=== PATIENT | male | born 1950 | race Caucasian/White ===

== ENCOUNTER 2020-06-14 09:53 | Emergency (ER) | payer MEDICARE, OTHER, SELFPAY ==
[2020-06-14 09:55] VITALS: BP 162/92; PULSE 70; RESP 16; TEMP 36.7; O2SAT 97; BMI 27.0
--- NOTE | 2020-06-14 10:09 | EKG12_ITS ---
Test Reason : Blood Pressure : / mmHG Vent. Rate : 070 BPM Atrial Rate : 070 BPM P-R Int : 164 ms QRS Dur : 084 ms QT Int : 360 ms P-R-T Axes : 043 006 028 degrees QTc Int : 388 ms Normal sinus rhythm Poor R- wave Progression Confirmed by MEGAN WEBER, KENNETH ([id number]), television news video editor MI CALLES ([id number]) on 06/17/2020 12:29:18 PM Referred By: ROLANDO Confirmed By:KENNETH GUZMAN MD
--- NOTE | 2020-06-14 10:09 | RAD_ITS ---
STUDY: X-RAY CHEST REASON FOR EXAM: Male, 69 years old. Chest pain, possible strokes, drowsiness. TECHNIQUE: Single AP portable view of the chest. COMPARISON: 05/15/2011 FINDINGS: The lungs are clear and expanded. There is no demonstrated pleural abnormality. Normal size heart. Normal mediastinum and chante. Normal visualized pulmonary arteries. There is atherosclerotic tortuosity of the aortic arch and descending thoracic aorta. Normal visualized thoracic spine. Normal visualized ribs, clavicles, and shoulders. There is no demonstrated abnormality of the visualized soft tissue structures of the upper abdomen. RAD/Chest 1 View (Portable) IMPRESSION: No active pulmonary disease. Electronically Signed: Flavio Serna MD at 11:14 EDT Tel , Service support ,
--- NOTE | 2020-06-14 10:09 | CT_ITS ---
STUDY: CT BRAIN WITHOUT CONTRAST REASON FOR EXAM: Male, 69 years old. Episodes of headache. RADIATION DOSAGE (If Supplied By Facility): CTDIvol = ( 44.99 ) mGy, DLP = ( 812.98 ) mGycm TECHNIQUE: Transaxial CT imaging of the brain was performed without administration of intravenous contrast material. Individualized dose optimization techniques were used for this CT. COMPARISON: No relevant priors. FINDINGS: Normal soft tissue structures. Normal calvarium. Normal size ventricles and extra-axial spaces for the patient''s age. Normal white matter tracts of the cerebral hemispheres. Normal basal ganglia and thalami. Normal brainstem. Normal cerebellum. There is no intracranial hemorrhage. There are no findings of an acute ischemic infarction. There are mild calcifications of the cavernous internal carotid arteries. Normal visualized paranasal sinuses. CT/Brain/Head without Contrast IMPRESSION: No acute intracranial process. Electronically Signed: Flavio Senra MD at 11:08 EDT Tel , Service support ,
[2020-06-14 10:11] VITALS: BMI 27.0
[2020-06-14 10:14] VITALS: O2SAT 97
--- NOTE | 2020-06-14 10:27 | ED.DCSUM_ITS ---
History of Present Illness Chief Complaint: Neuro S/Sx Informant: Patient, Family Onset: Days Maximum Severity: Mild Narrative: The patient presents with his , they are reporting that on the patient had a spell in the morning where basically he seemed to have his eyes rolled back up into his head, and he began to get stiff in the right arm and might of had some truncal jerking. The was there and witnessed the above this lasted for a few minutes he woke was at his baseline he had no tongue biting or incontinence. The patient he Bhargavi that he recalls the trying to interact with him he does not recall the actual episode. Later that afternoon he had a similar episode lasted again for a few minutes. Tuesday he was fine doing all of his normal activities including a 3 mile walk raking leaves. This morning he had a similar episode where he seemed to not interact with the for a short period of time and she was concerned he again had the stiffness in his right upper extremity the patient does not have clear recollection of the above but does again recall the trying to interact with him. The patient has no history of IN PE DVT seizure stroke TIA. He is eating and drinking well his bowel and bladder habits are normal he has no coronavirus exposure he indicates he feels fine right now nothing is bothering him Past Medical History - Allergies and Home Meds Allergies/Adverse Reactions: Allergies No Known Allergies Allergy (Verified 06/14/20 09:54) Primary Care Physician: Edgard Avila MD [Primary Care Provider] - Past Medical History: - - Includes as above Smoking Status: Never smoker Review of Systems General: Denies: Chills, Fever, Sweats Eyes: Denies: Visual changes - bilaterally, Diplopia ENT: Denies: Rhinorrhea, Sore throat Cardiovascular: Denies: Chest pain, Palpitations Respiratory: Denies: Dyspnea, Cough, Dyspnea on exertion Gastrointestinal: Denies: Abdominal pain, Nausea, Vomiting, Diarrhea, Melena, Hematochezia Genitourinary: Denies: Dysuria, Hematuria, Frequency Musculoskeletal: Denies: Back pain, Extremity Pain Skin: Denies: Rash, Wounds Neurological: Reports: - - Nonspecific sense of spasm in the right upper extremity possibly some truncal jerking with some of these episodes. Denies: Headache, Weakness, Numbness Physical Exam Vital Signs/Narrative: Vital Signs Temp Pulse Resp BP Pulse Ox 06/14/20 10:14 97 06/14/20 09:55 98.1 F 70 16 162/92 H 97 General: Well nourished, Well developed, No Acute Distress Head: Normocephalic, Atraumatic Eyes: Perrl, EOMI ENT: Moist mucous membranes, No rhinorrhea Neck: Supple, Nontender Cardiovascular: Regular rate, Regular rhythm, No murmurs Respiratory: No distress, CTA bilaterally, Chest nontender Abdomen: Soft, Nontender, Nondistended, Normal bowel sounds Back: Nontender, Normal Inspection Extremities: Nontender, No edema Skin: Normal color, No rash Neurological: Alert, Oriented x3, Cranial nerves II-XII grossly intact, Normal Strength, Normal Sensation Psychological: Normal affect, Normal Mood Diagnostic/Tx/Re-eval - Medical Decision Making The patient's neurologic exam is unremarkable his NIH is 0 he is awake and alert cranial nerves motor or sensory cerebellar gait all normal he has no complaints at this time Given all the above ED screening evaluations labs CT Patient's ED screening evaluation labs generally unremarkable head CT shows nothing acute per radiology EKG shows a sinus rhythm rate 70 no acute injury pattern intervals within normal range 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 he is remained in a sinus rhythm no symptoms no recurrence, Note the patient has declined coronavirus screen as he has no symptoms Spoke with the patient his discussed the differential discussed inpatient versus outpatient management I do not wish to be admitted spoke with his for his his physician who agreed he could have close outpatient follow-up with the office on Tuesday and return for change in symptoms, again the family and patient understand the exact etiology of the above unclear and they prefer outpatient management Home stable declined admission Impression final transient change in consciousness resolved etiology unclear ED Disposition - Plan for ED Patient: Diagnosis: Transient change in consciousness Instructions: ED Seizure New Onset Unk Cause Referrals: Edgard Avila MD [Primary Care Provider] - Additional Instructions: Rest follow-up with your physician Tuesday return for change in symptoms no driving or operation of heavy equipment
[2020-06-14] MEDS: 0.9% Normal Saline 1,000 ML 150 ML IV (10:40)
[2020-06-14 10:54] LABS: Absolute Lymphocyte Count 1.33 X10^3/uL (0.83-4.51); Absolute Neutrophil Count 3.7 X10^3/uL (2.0-7.7); Basophil# 0.03 X10^3/uL; Basophil% 0.5 % (0-1); Eosinophil# 0.03 X10^3/uL; Eosinophils% 0.5 % (0-5); Hematocrit 48.6 % (40-54); Hemoglobin 16.2 g/dL (13.0-16.5); Lymphocyte # 1.33 X10^3/ul (4.0); Lymphocyte % 23.8 % (19-41); Mean Corp Hgb Conc 33.3 g/dL (32-36); Mean Corpuscular Hgb 31.3 pg (27.0-32.0); Mean Corpuscular Volume 93.8 fL (80-94); Mean Platelet Vol. 10.9 fl (6.2-12.0); Monocyte# 0.42 X10^3/uL; Monocyte% 7.5 % (0-10); NRBC Flagged by Analyzer 0 % (0-5); Neutrophil # 3.73 X10^3/uL (2.7-7.7); Platelet Count 166 K/mm3 (150-450); RBC Distribution Width CV 12.3 % (11.6-14.6); Red Blood Count 5.18 M/mm3 (4.6-6.2); White Blood Count 5.6 K/mm3 (4.4-11.0)
[2020-06-14 11:00] LABS: Anion Gap 3 (5-15); BUN 17 mg/dL (7-18); BUN/Creat Ratio 16.3 RATIO (10-20); Calcium,Total 8.9 mg/dL (8.5-10.1); Chloride 109 mmol/L (98-107); Creatinine, Serum 1.04 mg/dL (0.70-1.30); EST Glomerular Filtration Rate 75 mL/min (>60); Est Glom Filt Rate - Afr Amer 91 mL/min (>60); Estimated Creatinine Clearance 70.19 ml/min; Glucose 127 mg/dL (74-106); Potassium 3.7 mmol/L (3.5-5.1); Sodium Level 142 mmol/L (136-145)
[2020-06-14 12:10] VITALS: BP 149/78; PULSE 81; RESP 18; O2SAT 98
--- NOTE | 2020-06-14 12:10 | ED.RN ---
THIS NURSE REVIEWED D/C INSTRUCTIONS WITH PT AND . BOTH VERBALIZED UNDERSTANDING OF INSTRUCTIONS. IV D/C. IV CATHETER INTACT. PT TOLERATED WELL. PT DENIES FURTHER NEEDS OR QUESTIONS AT THIS TIME. PT AMBULATES FROM ROOM ON OWN WITHOUT ASSISTANCE FROM STAFF
== END 2020-06-14 12:13 | disposition home or self-care (01) ==
LOC: ED 10:51
PROVIDERS: Emergency Provider Emergency Medicine; PCP Family Medicine
DX: R40.4 Transient alteration of awareness (principal)
CPT/HCPCS: 70450; 71045; 80048; 84484; 85025; 93005; 96360; 96361; 99284; J7030

== ENCOUNTER → 2020-07-10 08:17 | Outpatient (CLI) | payer MEDICARE, OTHER, SELFPAY ==
[2020-06-26 11:25] VITALS: BMI 26.9
[2020-07-10 10:36] LABS: Hemoglobin A1c 5.8 % (3.8-5.6)
[2020-07-10 10:39] LABS: Glucose 107 mg/dL (74-106)
== END ==
PROVIDERS: PCP Family Medicine; Referring Provider Psychiatry & Neurology Neurology; Visit Provider Psychiatry & Neurology Neurology
DX: E11.65 Type 2 diabetes mellitus with hyperglycemia (principal); R40.0 Somnolence
CPT/HCPCS: 36415; 82947; 83036; 84443

== ENCOUNTER → 2020-07-24 08:35 | Outpatient (CLI) | payer MEDICARE, OTHER, SELFPAY ==
[2020-06-26 11:25] VITALS: BMI 26.9
[2020-07-24 12:34] LABS: Cholesterol 163 mg/dL (200); High Density Lipoprotein 45 mg/dL; PSA,Total - Annual Screen 4.75 ng/mL (0.00-4.00); Triglycerides 123 mg/dL; Very Low Density Lipoprotein 25 mg/dL (5-40)
== END ==
PROVIDERS: PCP Family Medicine; Visit Provider Family Medicine
DX: Z13.220 Encounter for screening for lipoid disorders (principal); Z12.5 Encounter for screening for malignant neoplasm of prostate; I25.10 Atherosclerotic heart disease of native coronary artery without angina pectoris; I10 Essential (primary) hypertension; Z80.42 Family history of malignant neoplasm of prostate
CPT/HCPCS: 36415; 80061; 84153; G0103

== ENCOUNTER → 2020-12-15 13:20 | Outpatient (CLI) | payer MEDICARE, OTHER, SELFPAY ==
[2020-06-26 11:25] VITALS: BMI 26.9
--- NOTE | 2020-12-15 | IMM_PTH ---
PATIENT: JAYDEN MAJOR LOC: ANG U#:[id number] AGE/SX: 74/M ROOM: RE12/15/[address]: Dr. Tho Newell MD : 1950 BED: DIS: SPEC #: [id number] RECD: 12/16/20 12:09 STATUS: SOM RELila #: [id number] ANITA: 12/15/20 00:[address]: Tho Newell DEPT: IMMUNOHISTOCHEMISTRY RECD BY: Lisbeth Garza ENTERED: 12/16/20 12:11 SP TYPE: IMMUNO OTHR DR: Dr. Edgard Avila MD Tissues: D - PROSTATE LEFT Procedures: P40 (add) 34BE12 (initial) PHYSICIAN & INSTITUTION [place] [id number] SPECIMEN INFORMATION: Tissue Source: D - Left prostate, apex, core biopsy Clinical Info: Elevated PSA Specimen Number: [id number] CPT code: 95570, 19067 METHODOLOGY: Deparaffinized sections of prefer/formalin-fixed tissue or PAP/DQ stained slides are incubated with monoclonal/polyclonal antibodies/oligonucleotide probes. Localization is made via biotin free immunoperoxidase method. Appropriate controls are performed and reacted as expected. Results on target cell population are indicated in the following table: RESULTS: ANTIBODY / CLONE RESULT Block D P40 (BC28) negative 34BE12 (34BE12) negative These tests were developed and their performance characteristics determined by [facility]. They may not have been cleared or approved by the U.S. Food and Drug Administration. The FDA has determined that such clearance or approval is not necessary. The above immunohistochemical/dualISH markers are ordered and reviewed by the Pathologist. INTERPRETATION: Byron Left prostate, apex, core biopsy: Focal atypical small acinar proliferation (ALBERTINA) SJ:domi 12/17/2020
--- NOTE | 2020-12-15 08:00 | PROSBIL_PTH ---
PATIENT: JAYDEN MAJOR LOC: ANG U#:[id number] AGE/SX: 74/M ROOM: RE12/15/[address]: Dr. Tho Newell MD : 1950 BED: DIS: SPEC #: [id number] RECD: 12/15/20 13:15 STATUS: SOM NO #: [id number] ANITA: 12/15/20 08:[address]: Tho Newell DEPT: SURGICAL PATHOLOGY RECD BY: Jenni Kennedy ENTERED: 12/15/20 13:44 SP TYPE: PROST BX STEW DR: Dr. Edgard Avila MD Tissues: A - PROSTATE RIGHT B - PROSTATE RIGHT C - PROSTATE RIGHT D - PROSTATE LEFT E - PROSTATE LEFT F - PROSTATE LEFT Procedures: PROSTATE BX HEADER OPERATION: Prostate biopsy PRE-OP DIAGNOSIS: Elevated PSA TISSUE SUBMITTED: A - Right apex, B - Right mid, C - Right base, D - Left apex, E - Left mid, F - Left base MICROSCOPIC DIAGNOSIS A. Right prostate, apex, core biopsy: Prostatic tissue, negative for malignancy. Focal mild chronic inflammation. B. Right prostate, mid, core biopsy: Prostatic tissue, negative for malignancy. C. Right prostate, base, core biopsy: Prostatic tissue, negative for malignancy. D. Left prostate, apex, core biopsy: Focal atypical small acinar proliferation (ALBERTINA). See comment. E. Left prostate, mid, core biopsy: Prostatic tissue, negative for malignancy. F. Left prostate, base, core biopsy: Prostatic tissue, negative for malignancy. SJ:domi 12/16/2020 COMMENT D. Immunohistochemistry ([id number]) supports the above diagnosis. Case has been reviewed in consultation with Dr. Kahn who concurs with the above diagnosis. IDC:AM MICROSCOPIC DESCRIPTION Slides are reviewed. GROSS DESCRIPTION A - Received is one container designated prostate, right apex. The specimen consists of two elongated fragments of light prieto-white soft tissue each measuring 1 cm in length and 0.1 cm in diameter. The specimen is totally submitted in one cassette. B - Received is one container designated prostate, right mid. The specimen consists of two elongated fragments of light prieto-white soft tissue each measuring 1.5 cm in length and 0.1 cm in diameter. The specimen is totally submitted in one cassette. C - Received is one container designated prostate, right base. The specimen consists of two elongated fragments of light prieto-white soft tissue each measuring 1.3 cm in length and 0.1 cm in diameter. The specimen is totally submitted in one cassette. D - Received is one container designated prostate, left apex. The specimen consists of two elongated fragments of light prieto-white soft tissue measuring 1 and 1.3 cm in length and 0.1 cm in diameter. The specimen is totally submitted in one cassette. E - Received is one container designated prostate, left mid. The specimen consists of two elongated fragments of light prieto-white soft tissue measuring 1.2 and 1.5 cm in length and 0.1 cm in diameter. The specimen is totally submitted in one cassette. F - Received is one container designated prostate, left base. The specimen consists of two elongated fragments of light prieto-white soft tissue measuring 1 and 1.5 cm in length and 0.1 cm in diameter. The specimen is totally submitted in one cassette. / SJ:rg 12/15/20 TC:3 CPT: G0146
== END ==
PROVIDERS: PCP Family Medicine; Visit Provider Urology
DX: R97.20 Elevated prostate specific antigen [PSA] (principal)
CPT/HCPCS: 88305; 88341; 88342; G0416

== ENCOUNTER → 2021-06-15 07:10 | Outpatient (CLI) | payer MEDICARE, OTHER, SELFPAY ==
[2021-06-15 09:55] LABS: Absolute Lymphocyte Count 1.89 X10^3/uL (0.83-4.51); Absolute Neutrophil Count 2.3 X10^3/uL (2.0-7.7); Basophil# 0.03 X10^3/uL; Basophil% 0.6 % (0-1); Eosinophil# 0.09 X10^3/uL; Eosinophils% 1.9 % (0-5); Hematocrit 49.1 % (40-54); Lymphocyte # 1.89 X10^3/ul (0.83-4.51); Lymphocyte % 40.6 % (19-41); Mean Corp Hgb Conc 32.6 g/dL (32-36); Mean Corpuscular Hgb 30.7 pg (27.0-32.0); Mean Corpuscular Volume 94.1 fL (80-94); Mean Platelet Vol. 10.7 fl (6.2-12.0); Monocyte# 0.38 X10^3/uL; Monocyte% 8.2 % (0-10); NRBC Flagged by Analyzer 0 % (0-5); Neutrophil # 2.26 X10^3/uL (2.7-7.7); Neutrophil % 48.5 % (47-70); Platelet Count 164 K/mm3 (150-450); RBC Distribution Width CV 12.3 % (11.6-14.6); RBC Distribution Width SD 42.7 fl (35.1-43.9); Red Blood Count 5.22 M/mm3 (4.6-6.2); White Blood Count 4.7 K/mm3 (4.4-11.0)
[2021-06-15 10:14] LABS: PSA,Total- Diagnostic 3.42 ng/mL (0.0-4.0)
[2021-06-15 10:17] LABS: Hemoglobin A1c 5.7 % (3.8-5.6)
[2021-06-15 10:23] LABS: Anion Gap 7 (5-15); BUN 15 mg/dL (7-18); BUN/Creat Ratio 16.6 RATIO (10-20); Calcium,Total 8.5 mg/dL (8.5-10.1); Chloride 107 mmol/L (98-107); Cholesterol 164 mg/dL (200); Creatinine, Serum 0.91 mg/dL (0.70-1.30); EST Glomerular Filtration Rate 88 mL/min (>60); Est Glom Filt Rate - Afr Amer 107 mL/min (>60); Glucose 98 mg/dL (74-106); High Density Lipoprotein 50 mg/dL; Potassium 3.8 mmol/L (3.5-5.1); Sodium Level 141 mmol/L (136-145); Triglycerides 86 mg/dL; Very Low Density Lipoprotein 17 mg/dL (5-40)
== END ==
PROVIDERS: Urology; PCP Family Medicine; Referring Provider Family Medicine; Visit Provider Family Medicine
DX: I10 Essential (primary) hypertension (principal); R73.01 Impaired fasting glucose; R97.20 Elevated prostate specific antigen [PSA]
CPT/HCPCS: 36415; 80048; 80061; 83036; 84153; 85025

== ENCOUNTER → 2022-04-01 | Outpatient (CLI) | payer MEDICARE, OTHER, SELFPAY ==
[2022-04-01 10:24] LABS: Hematocrit 47.4 % (40-54); Mean Corp Hgb Conc 33.8 g/dL (32-36); Mean Corpuscular Hgb 31.3 pg (27.0-32.0); Mean Corpuscular Volume 92.8 fL (80-94); Mean Platelet Vol. 10.7 fl (6.2-12.0); Platelet Count 165 K/mm3 (150-450); RBC Distribution Width CV 12.4 % (11.6-14.6); RBC Distribution Width SD 42.5 fl (35.1-43.9); Red Blood Count 5.11 M/mm3 (4.6-6.2); White Blood Count 4.3 K/mm3 (4.4-11.0)
[2022-04-01 10:40] LABS: Vitamin B12 353 pg/mL (211-911)
[2022-04-01 10:53] LABS: AST(SGOT) 18 U/L (15-37); Alanine Aminotransfer ALT/SGPT 28 U/L (16-61); Albumin, Serum 3.4 g/dL (3.2-5.0); Alkaline Phosphatase 81 U/L (45-117); Anion Gap 7 (5-15); BUN 13 mg/dL (7-18); Calcium,Total 8.6 mg/dL (8.5-10.1); Chloride 107 mmol/L (98-107); EST Glomerular Filtration Rate 79 mL/min (>60); Est Glom Filt Rate - Afr Amer 95 mL/min (>60); Globulin 3.4 g/dL (2.2-4.2); Glucose 98 mg/dL (74-106); Protein, Total 6.8 g/dL (6.4-8.2); Sodium Level 141 mmol/L (136-145); Thyroid Stim Hormone (TSH) 1.17 uIU/mL (0.358-3.74)
[2022-04-05 12:12] LABS: Vitamin B1, Thiamine 139.6 nmol/L (66.5-200.0)
== END | disposition home or self-care (01) ==
LOC: MTLAB 07:25
PROVIDERS: PCP Family Medicine; Referring Provider Psychiatry & Neurology Neurology; Visit Provider Psychiatry & Neurology Neurology
DX: I10 Essential (primary) hypertension (principal); G31.84 Mild cognitive impairment of uncertain or unknown etiology
CPT/HCPCS: 36415; 80053; 82607; 82746; 84425; 84443; 85027

== ENCOUNTER → 2022-04-21 | Outpatient (CLI) | payer MEDICARE, OTHER, SELFPAY ==
--- NOTE | 2022-04-21 11:08 | MRI_ITS ---
STUDY: MRI BRAIN WITH AND WITHOUT CONTRAST REASON FOR EXAM: Male, 71 years old. Mild cognitive impairment TECHNIQUE: Standardized multiplanar fat and water weighted pulse sequences were obtained. IV 15mL CLARISCAN was administered for the contrast portion of the examination. COMPARISON: Head CT dated June 14, 2020 FINDINGS: There is mild cerebral atrophy with widening of the extra-axial spaces and ventricular dilatation. There are a limited number of small white matter hyperintensities, distributed throughout the deep white matter tracts of the cerebral hemispheres, consistent with mild chronic white matter ischemic changes. There is no evidence for recent intracranial ischemia or other cause of cytotoxic edema on diffusion weighted imaging (DWI). Normal T2* images of the brain without demonstrated susceptibility artifact. There is no demonstrated hemosiderin stain. Normal bilateral basal ganglia. Normal thalami. There is no extra-axial fluid accumulation. Normal flow voids within the major intracranial circulation suggesting patency by spin echo criteria. Normal venous enhancement. There is no enhancing intra-axial or extra-axial abnormality. No focal brain parenchymal edema or lesions or abnormal enhancement is seen. There is no abnormal thickening or enhancement of the meninges or dura Normal sella turcica, pituitary gland, infundibular stalk, optic chiasm and hypothalamus. Normal tectal plate and pineal gland. Normal midbrain, modesta and medulla. Normal cerebellum. Normal basal cisterns. Normal bilateral temporal bones. Normal bilateral internal auditory canals. No demonstrated orbital abnormality, within the constraints of a routine brain study. Normal visualized paranasal sinuses. Normal calvarium and skull base. Normal visualized soft tissue structures. Normal visualized upper cervical spine. MRI/Brain W/WO Contrast IMPRESSION: 1. Involutional changes of the brain, as described above. 2. No acute infarct or intracranial hemorrhage 3. No suspicious lesions or abnormal enhancement of the brain parenchyma. Electronically Signed: Bala Lazaro MD at 14:53 EDT ,
== END | disposition home or self-care (01) ==
LOC: MRI 10:51
PROVIDERS: PCP Family Medicine; Visit Provider Psychiatry & Neurology Neurology
DX: G31.84 Mild cognitive impairment of uncertain or unknown etiology (principal)
CPT/HCPCS: 70553; A9575

== ENCOUNTER → 2022-04-22 | Outpatient (CLI) | payer MEDICARE, OTHER, SELFPAY ==
--- NOTE | 2022-04-22 09:02 | TELEMED_ITS ---
[facility] Telemed has confirmed receipt of a request for visit. This document confirms receipt of the order initiating the consult. To find the results of the consultation, please view the patient's reports for the scanned Telemed Consult.
== END | disposition home or self-care (01) ==
LOC: PSN 08:08
PROVIDERS: PCP Family Medicine; Referring Provider Psychiatry & Neurology Neurology; Visit Provider Psychiatry & Neurology Neurology
DX: G31.84 Mild cognitive impairment of uncertain or unknown etiology (principal)
CPT/HCPCS: 95819

== ENCOUNTER → 2022-07-20 | Outpatient (CLI) | payer MEDICARE, OTHER, SELFPAY ==
[2022-07-20 09:55] LABS: Absolute Lymphocyte Count 1.75 X10^3/uL (0.83-4.51); Absolute Neutrophil Count 2.5 X10^3/uL (2.0-7.7); Basophil# 0.03 X10^3/uL; Basophil% 0.6 % (0-1); Eosinophil# 0.16 X10^3/uL; Eosinophils% 3.3 % (0-5); Hemoglobin 16.6 g/dL (13.0-16.5); Lymphocyte # 1.75 X10^3/ul (0.83-4.51); Lymphocyte % 36.6 % (19-41); Mean Corp Hgb Conc 33.9 g/dL (32-36); Mean Corpuscular Hgb 31.9 pg (27.0-32.0); Mean Corpuscular Volume 94.2 fL (80-94); Mean Platelet Vol. 10.8 fl (6.2-12.0); Monocyte# 0.37 X10^3/uL; Monocyte% 7.7 % (0-10); NRBC Flagged by Analyzer 0 % (0-5); Neutrophil # 2.45 X10^3/uL (2.7-7.7); Neutrophil % 51.4 % (47-70); Platelet Count 169 K/mm3 (150-450); RBC Distribution Width CV 12.3 % (11.6-14.6); RBC Distribution Width SD 42.8 fl (35.1-43.9); White Blood Count 4.8 K/mm3 (4.4-11.0)
[2022-07-20 10:04] LABS: Anion Gap 5 (5-15); BUN 15 mg/dL (7-18); BUN/Creat Ratio 15.8 RATIO (10-20); Calcium,Total 8.8 mg/dL (8.5-10.1); Chloride 107 mmol/L (98-107); Cholesterol 142 mg/dL (200); Creatinine, Serum 0.95 mg/dL (0.70-1.30); EST Glomerular Filtration Rate 83 mL/min (>60); Est Glom Filt Rate - Afr Amer 101 mL/min (>60); Glucose 100 mg/dL (74-106); High Density Lipoprotein 51 mg/dL; PSA,Total- Diagnostic 4.09 ng/mL (0.0-4.0); Potassium 4.5 mmol/L (3.5-5.1); Sodium Level 141 mmol/L (136-145); Triglycerides 88 mg/dL; Very Low Density Lipoprotein 18 mg/dL (5-40)
[2022-07-20 10:10] LABS: Hemoglobin A1c 5.8 % (3.8-5.6)
== END | disposition home or self-care (01) ==
LOC: MTLAB 07:48
PROVIDERS: PCP Family Medicine; Referring Provider Family Medicine; Visit Provider Family Medicine
DX: R97.20 Elevated prostate specific antigen [PSA] (principal); I10 Essential (primary) hypertension; R73.01 Impaired fasting glucose
CPT/HCPCS: 36415; 80048; 80061; 83036; 84153; 85025

== ENCOUNTER 2022-10-12 08:49 | Day surgery (SDC) | payer MEDICARE, OTHER, SELFPAY ==
--- NOTE | 2022-10-12 | COLBX_PTH ---
PATIENT: JAYDEN MAJOR LOC: EN U#:[id number] AGE/SX: 71/M ROOM: RE10/12/[address]: Dr. Jole Sher MD : 1950 BED: DIS: 10/12/2022 SPEC #: [id number] RECD: 10/12/22 12:32 STATUS: SOM NO #: [id number] ANITA: 10/12/22 00:[address]: Joel Sher DEPT: SURGICAL PATHOLOGY RECD BY: Zechariah Honeycutt ENTERED: 10/12/22 12:32 SP TYPE: COLON BX STEW DR: Dr. Guillermo Barry, DO Tissues: A - COLON BIOPSY B - Sigmoid colon biopsy Procedures: Surgery Specimen Level IV HEADER OPERATION: Colonoscopy ? open access (MAC) PRE-OP DIAGNOSIS: Screening TISSUE SUBMITTED: A ? Hepatic flexure polyp biopsy, B ? Proximal sigmoid polyp MICROSCOPIC DIAGNOSIS A ? Hepatic flexure polyp, biopsy: Tubular adenoma. B ? Proximal sigmoid polyp, biopsy: Tubular adenoma. SJ 10/13/2022 MICROSCOPIC DESCRIPTION Slides are reviewed. GROSS DESCRIPTION A. Received is one container labeled with the patient name and designated hepatic flexure polyp. The specimen consists of multiple irregular fragments of light prieto soft tissue that in aggregate measure 1 x 0.3 x 0.1 cm. The specimen is totally submitted in one cassette. B. Received is one container labeled with the patient name and designated proximal sigmoid polyp. The specimen consists of one irregular fragment of light prieto soft tissue that measures 0.5 x 0.5 x 0.1 cm. The specimen is totally submitted in one cassette. /AM:sanam 10/13/2022 TC:1 CPT:40494 x2
[2022-10-12 09:07] VITALS: BP 144/76; PULSE 65; RESP 16; TEMP 36.1; O2SAT 100; BMI 24.3
[2022-10-12] MEDS: Lactated Ringers 1,000 ML 15 ML IV (09:20)
--- NOTE | 2022-10-12 09:31 | HP.PCM_ITS ---
[facility] - General General Date of Service: 10/12/22 Chief Complaint: Screening for intestinal cancer HPI Narrative JAYDEN MAJOR, is a 71 M who presents for screening colonoscopy. Previous one was over 10 years ago. He denies bright red blood per rectum or melena. He otherwise enjoys good health. [facility] Medical History (Updated 10/07/22 @ 15:50 by Radha López) Back pain Dementia Former smoker Heartburn History of ulceration Hx of skin cancer, basal cell Leg cramps Loss of hearing Skin cancer Home Medications ascorbic acid (vitamin C) 500 mg tablet 500 mg PO DAILY 06/26/20 [History Last Taken Unknown] cholecalciferol (vitamin D3) 125 mcg (5,000 unit) capsule 125 mcg PO DAILY 06/26/20 [History Last Taken Unknown] coenzyme Q10 100 mg capsule 100 mg PO DAILY 06/26/20 [History Last Taken Unknown] donepezil 10 mg tablet 10 mg PO QHS #30 tabs 08/10/22 [Rx Last Taken Unknown] aspirin 81 mg tablet,delayed release 81 mg PO DAILY 08/16/22 [History Last Taken 10/11/22] Allergy/AdvReac Type Severity Reaction Status Date / Time No Known Allergies Allergy Verified 10/12/22 09:17 Family History Father CVA (cerebral vascular accident) Cancer prostate Sister Breast cancer Diabetes Brother Diabetes Mother Diabetes Hypertension Surgical History (Updated 10/07/22 @ 15:50 by Radha López) H/O tooth extraction Hx of colonoscopy Hx of prostate biopsy Social History (Updated 08/16/22 @ 08:51 by Cristel Gomez) Smoking Status: Former smoker second hand exposure: No alcohol intake: current alcohol intake frequency: a few times a month Alcohol type: beer substance use type: does not use what type of physical activity do you participate in: walking frequency: daily bijan/roman catholic: None seatbelt use: always ROS Constitutional Constitutional: Reports systems reviewed and no addt'l complaints, except as documented Cardiovascular Cardiovascular: Denies chest pain Respiratory/Chest Respiratory/Chest: Denies shortness of breath at rest Gastrointestinal Gastrointestinal: Denies abdominal pain, change in bowel habits, hematochezia or melena Vital Signs Vital Signs Vital Signs: 10/12/22 09:07 10/12/22 09:07 Temperature 97.0 F L Temperature Source Temporal Pulse Rate 65 Respiratory Rate 16 Respiratory Pattern Normal Blood Pressure 144/76 H Blood Pressure Mean 98 Blood Pressure Source Monitor Blood Pressure Position Semi-Fowlers Blood Pressure Location Right Arm Pulse Ox 100 Oxygen Delivery Method Room Air Weight Weight: 169 lb 15.622 oz Body Mass Index (BMI) 24.3 Physical Exam Const alert, oriented x3 and no apparent distress General Appearance: cooperative and comfortable Eyes General Eye: normal appearance of both eyes Neck General: normal visual inspection Chest inspection of chest normal Resp Effort and Inspection: able to speak in complete sentences and symmetric chest movement Auscultation: clear to auscultation bilaterally Cardio regular rate and regular rhythm GI soft to palpation, non-tender and non-distended Extremity no calf tenderness Neuro oriented x3 Psych thought process normal Assessment & Plan Assessment/Plan (1) Encounter for screening for malignant neoplasm of colon: PLAN: The patient presents via open access today for screening colonoscopy with possible biopsy or polypectomy as indicated. He is aware of the technique, benefit, risk, alternatives. He has had an opportunity to ask and have questions answered. We will proceed as noted. Joel Sher M.D., F.A.C.S.
[2022-10-12 11:15] VITALS: BP 130/76; BP 144/76; PULSE 63; RESP 16; TEMP 37.1; O2SAT 100
--- NOTE | 2022-10-12 11:19 | OP.CCLET_ITS ---
10/12/2022 Edgard Avila Re : Colonoscopy procedure for Selvin Brian Dear Margarita This procedure was performed on Wednesday, October 12, 2022. My impressions and recommendations are as follows: Impressions : - Hemorrhoids found on perianal exam. - One 5 mm polyp at the hepatic flexure, removed with a cold biopsy forceps. Resected and retrieved. - One 7 mm polyp in the proximal sigmoid colon, removed with a hot snare. Resected and retrieved. Clip was placed. - Diverticulosis in the sigmoid colon. Recommendations : - Discharge patient to home. - Resume previous diet. - Continue present medications. - Repeat colonoscopy in 5 years for surveillance based on pathology results. - Telephone my office for pathology results in 1 week. My findings are described in the full procedure note, which is enclosed. If I can be of further assistance, please feel free to contact me at Doctor phone number(s): Work: . Sincerely, Joel Sher MD 10/12/2022 11:19:00 AM This report has been signed electronically.
--- NOTE | 2022-10-12 11:19 | OP.COLON_ITS ---
Patient Name: Selvin Brian Procedure Date: 10/12/2022 10:43 AM Date of : 1950 Age: 71 Procedure: Colonoscopy Indications: Screening for colorectal malignant neoplasm Providers: Joel Sher MD Medicines: See the Anesthesia note for documentation of the administered medications Patient Profile: Last Colonoscopy: 2007. Complications: No immediate complications. Procedure: Pre-Anesthesia Assessment: - Prior to the procedure, a History and Physical was performed, and patient medications and allergies were reviewed. The patient's tolerance of previous anesthesia was also reviewed. The risks and benefits of the procedure and the sedation options and risks were discussed with the patient. All questions were answered, and informed consent was obtained. Prior Anticoagulants: The patient has taken no previous anticoagulant or antiplatelet agents. ASA Grade Assessment: II - A patient with mild systemic disease. After reviewing the risks and benefits, the patient was deemed in satisfactory condition to undergo the procedure. After I obtained informed consent, the scope was passed under direct vision. Throughout the procedure, the patient's blood pressure, pulse, and oxygen saturations were monitored continuously. The colonoscope was introduced through the anus and advanced to the cecum, identified by appendiceal orifice and ileocecal valve. The colonoscopy was performed without difficulty. The patient tolerated the procedure well. The quality of the bowel preparation was good. The ileocecal valve was photographed. Scope In: 10:48:57 AM Scope Withdrawal Time 0 hours 17 minutes 49 seconds Scope Out: 11:11:19 AM Total Procedure Duration Time 0 hours 22 minutes 22 seconds Findings: Hemorrhoids were found on perianal exam. A 5 mm polyp was found in the hepatic flexure. The polyp was sessile. The polyp was removed with a cold biopsy forceps. Resection and retrieval were complete. A 7 mm polyp was found in the proximal sigmoid colon. The polyp was sessile. The polyp was removed with a hot snare. Resection and retrieval were complete. To prevent bleeding post-intervention, one hemostatic clip was successfully placed. There was no bleeding at the end of the procedure. A few diverticula were found in the sigmoid colon. Impression: - Hemorrhoids found on perianal exam. - One 5 mm polyp at the hepatic flexure, removed with a cold biopsy forceps. Resected and retrieved. - One 7 mm polyp in the proximal sigmoid colon, removed with a hot snare. Resected and retrieved. Clip was placed. - Diverticulosis in the sigmoid colon. Recommendation: - Discharge patient to home. - Resume previous diet. - Continue present medications. - Repeat colonoscopy in 5 years for surveillance based on pathology results. - Telephone my office for pathology results in 1 week. Procedure Code(s): --- Professional --- 11112, Colonoscopy, flexible; with removal of tumor(s), polyp(s), or other lesion(s) by snare technique 05276, 59, Colonoscopy, flexible; with biopsy, single or multiple Diagnosis Code(s): --- Professional --- Z12.11, Encounter for screening for malignant neoplasm of colon K64.9, Unspecified hemorrhoids D12.3, Benign neoplasm of transverse colon (hepatic flexure or splenic flexure) D12.5, Benign neoplasm of sigmoid colon K57.30, Diverticulosis of large intestine without perforation or abscess without bleeding CPT copyright 2017 [employer]. All rights reserved. The codes documented in this report are preliminary and upon electrolysis investigator review may be revised to meet current compliance requirements. Joel Sher MD 10/12/2022 11:19:00 AM This report has been signed electronically. Number of Addenda: 0 Note Initiated On: 10/12/2022 10:43 AM
[2022-10-12 11:20] VITALS: BP 143/89; BP 144/76; PULSE 61; RESP 16; O2SAT 100
[2022-10-12 11:25] VITALS: BP 143/69; BP 144/76; PULSE 58; RESP 16; O2SAT 100
[2022-10-12 11:30] VITALS: BP 143/70; BP 144/76; PULSE 53; RESP 16; TEMP 36; O2SAT 100
[2022-10-12 12:10] VITALS: BP 144/76
== END 2022-10-12 12:11 | disposition home or self-care (01) ==
LOC: EN 08:51 → AC 08:52
PROVIDERS: PCP Family Medicine; Referring Provider Family Medicine; Visit Provider Surgery
PROC: 0DJD8ZZ Inspection of Lower Intestinal Tract, Via Natural or Artificial Opening Endoscopic (ICD-10-PCS; CPT 45378; principal; 2022-10-12 09:55)
DX: Z12.11 Encounter for screening for malignant neoplasm of colon (principal); F03.A0 Unspecified dementia, mild, without behavioral disturbance, psychotic disturbance, mood disturbance, and anxiety; K64.9 Unspecified hemorrhoids; D12.3 Benign neoplasm of transverse colon; D12.5 Benign neoplasm of sigmoid colon; K57.30 Diverticulosis of large intestine without perforation or abscess without bleeding; Z79.82 Long term (current) use of aspirin; Z87.891 Personal history of nicotine dependence
CPT/HCPCS: 45385; 45380; 88305; J7120; J2405

== ENCOUNTER → 2023-07-22 | Outpatient (CLI) | payer MEDICARE, OTHER, SELFPAY ==
[2023-07-22 10:19] LABS: Absolute Neutrophil Count 2.8 X10^3/uL (2.0-7.7); Basophil# 0.03 X10^3/uL; Basophil% 0.5 % (0-1); Eosinophil# 0.17 X10^3/uL; Eosinophils% 3.1 % (0-5); Hematocrit 49.2 % (40-54); Hemoglobin 16.1 g/dL (13.0-16.5); Lymphocyte % 36.4 % (19-41); Mean Corp Hgb Conc 32.7 g/dL (32-36); Mean Corpuscular Hgb 31.1 pg (27.0-32.0); Monocyte# 0.47 X10^3/uL; Monocyte% 8.5 % (0-10); NRBC Flagged by Analyzer 0 % (0-5); Neutrophil # 2.82 X10^3/uL (2.7-7.7); Neutrophil % 51.3 % (47-70); Platelet Count 164 K/mm3 (150-450); RBC Distribution Width CV 12.2 % (11.6-14.6); RBC Distribution Width SD 42.9 fl (35.1-43.9); Red Blood Count 5.18 M/mm3 (4.6-6.2); White Blood Count 5.5 K/mm3 (4.4-11.0)
[2023-07-22 10:49] LABS: AST(SGOT) 21 U/L (15-37); Alanine Aminotransfer ALT/SGPT 35 U/L (16-61); Albumin, Serum 3.4 g/dL (3.2-5.0); Alkaline Phosphatase 91 U/L (45-117); Anion Gap 3 (5-15); BUN 15 mg/dL (7-18); Calcium,Total 8.7 mg/dL (8.5-10.1); Chloride 109 mmol/L (98-107); EST Glomerular Filtration Rate 78 mL/min (>60); Est Glom Filt Rate - Afr Amer 95 mL/min (>60); Globulin 3.5 g/dL (2.2-4.2); Glucose 105 mg/dL (74-106); PSA,Total - Annual Screen 4.14 ng/mL (0.00-4.00); Potassium 4.4 mmol/L (3.5-5.1); Protein, Total 6.9 g/dL (6.4-8.2); Sodium Level 141 mmol/L (136-145)
[2023-07-22 11:45] LABS: Hemoglobin A1c 5.6 % (3.8-5.6)
== END | disposition home or self-care (01) ==
LOC: MTLAB 07:01
PROVIDERS: PCP Family Medicine; Referring Provider Family Medicine; Visit Provider Family Medicine
DX: R97.20 Elevated prostate specific antigen [PSA] (principal); I10 Essential (primary) hypertension; R73.01 Impaired fasting glucose; Z12.5 Encounter for screening for malignant neoplasm of prostate; Z80.42 Family history of malignant neoplasm of prostate
CPT/HCPCS: 36415; 80053; 83036; 84153; 85025; G0103

== ENCOUNTER → 2024-07-30 | Outpatient (CLI) | payer MEDICARE, OTHER, SELFPAY ==
[2024-07-30 10:31] LABS: Absolute Lymphocyte Count 1.65 X10^3/uL (0.83-4.51); Absolute Neutrophil Count 2.8 X10^3/uL (2.0-7.7); Basophil# 0.03 X10^3/uL; Basophil% 0.6 % (0-1); Eosinophils% 3.9 % (0-5); Hematocrit 49.3 % (40-54); Hemoglobin 16.2 g/dL (13.0-16.5); Lymphocyte # 1.65 X10^3/ul (0.83-4.51); Lymphocyte % 32.1 % (19-41); Mean Corp Hgb Conc 32.9 g/dL (32-36); Mean Corpuscular Hgb 30.7 pg (27.0-32.0); Mean Corpuscular Volume 93.5 fL (80-94); Mean Platelet Vol. 11.1 fl (6.2-12.0); Monocyte# 0.44 X10^3/uL; Monocyte% 8.6 % (0-10); NRBC Flagged by Analyzer 0 % (0-5); Neutrophil # 2.79 X10^3/uL (2.7-7.7); Neutrophil % 54.2 % (47-70); Platelet Count 165 K/mm3 (150-450); RBC Distribution Width CV 12.2 % (11.6-14.6); RBC Distribution Width SD 42.2 fl (35.1-43.9); Red Blood Count 5.27 M/mm3 (4.6-6.2); White Blood Count 5.1 K/mm3 (4.4-11.0)
[2024-07-30 10:55] LABS: AST(SGOT) 21 U/L (15-37); Alanine Aminotransfer ALT/SGPT 26 U/L (16-61); Albumin, Serum 3.5 g/dL (3.2-5.0); Alkaline Phosphatase 92 U/L (45-117); Anion Gap 4 (5-15); BUN 15 mg/dL (7-18); BUN/Creat Ratio 13.5 RATIO (10-20); Calcium,Total 8.9 mg/dL (8.5-10.1); Chloride 108 mmol/L (98-107); Cholesterol 140 mg/dL (200); Creatinine, Serum 1.11 mg/dL (0.70-1.30); EST Glomerular Filtration Rate 69 mL/min (>60); Est Glom Filt Rate - Afr Amer 84 mL/min (>60); Globulin 3.4 g/dL (2.2-4.2); Glucose 93 mg/dL (74-106); High Density Lipoprotein 48 mg/dL; PSA,Total- Diagnostic 3.87 ng/mL (0.0-4.0); Potassium 4.5 mmol/L (3.5-5.1); Protein, Total 6.9 g/dL (6.4-8.2); Sodium Level 140 mmol/L (136-145); Triglycerides 90 mg/dL; Very Low Density Lipoprotein 18 mg/dL (5-40)
[2024-07-30 11:28] LABS: Hemoglobin A1c 5.7 % (3.8-5.6)
== END | disposition home or self-care (01) ==
PROVIDERS: PCP Family Medicine; Referring Provider Family Medicine; Visit Provider Family Medicine
DX: Z00.00 Encounter for general adult medical examination without abnormal findings (principal); I10 Essential (primary) hypertension; R73.01 Impaired fasting glucose; R97.20 Elevated prostate specific antigen [PSA]
CPT/HCPCS: 36415; 80053; 80061; 83036; 84153; 85025

== ENCOUNTER → 2024-08-27 | Outpatient (CLI) | payer MEDICARE, OTHER, SELFPAY ==
--- NOTE | 2024-08-27 10:34 | CDU_ITS ---
Reason For Study: Syncope Rt. Velocities/BP Lt. Velocities/BP Prox CCA 83.4/9.7 cm/sec. Prox CCA 75.9/11.6 cm/sec. Mid CCA 63.6/11.6 cm/sec. Mid CCA 76.8/11.6 cm/sec. Dist CCA 57/11.6 cm/sec. Dist CCA 61.7/9.7 cm/sec. Prox ICA 50.9/10.2 cm/sec. Prox ICA 46.6/8.8 cm/sec. Mid ICA 48.7/11.3 cm/sec. Mid ICA 59.8/18.2 cm/sec. Dist ICA 79.5/20.1 cm/sec. Dist ICA 56.4/18.2 cm/sec. Rt. ICA/CCA = 1.25. Lt. ICA/CCA = 0.78. Prox ECA 101.4/11.3 cm/sec. Prox ECA 95.7/13.5 cm/sec. Rt. Vert. 38.6/9.5 cm/sec. Lt. Vert. 3386.6 cm/sec. Right Extracranial There is intimal thickening but no significant atherosclerotic plaque noted in the right common carotid artery. There is intimal thickening but no significant atherosclerotic plaque noted in the right internal carotid artery. There is intimal thickening but no significant atherosclerotic plaque noted in the right external carotid artery. Antegrade flow is noted in the right vertebral artery. Left Extracranial There is intimal thickening but no significant atherosclerotic plaque noted in the left common carotid artery. There is heterogeneous, irregular atherosclerotic plaque noted in the left internal carotid artery. There is intimal thickening but no significant atherosclerotic plaque noted in the left external carotid artery. Antegrade flow is noted in the left vertebral artery. Procedure Carotid Duplex 07462. This is a Carotid Duplex examination using B-mode, color flow and specral Doppler. Exam performed in department. VL/Carotid Duplex Ultrasound Interpretation Summary Normal right extracranial internal carotid. Mild (<50%) stenosis left extracranial internal carotid. Patent and antegrade vertebrals bilaterally. Ordering Physician: Lanette Contreras Referring Physician: Lanette Contreras Performed By: Dee Dee Johnson RVT
== END | disposition home or self-care (01) ==
LOC: CVS 10:34
PROVIDERS: PCP Family Medicine; Referring Provider Family Medicine; Visit Provider Family Medicine
DX: R55 Syncope and collapse (principal); I65.22 Occlusion and stenosis of left carotid artery
CPT/HCPCS: 93880

== ENCOUNTER → 2025-07-23 | Outpatient (CLI) | payer MEDICARE, OTHER, SELFPAY ==
--- OUTSIDE RECORDS SUMMARY | 2025-07-23 07:31 | XMS RPT_ITS | CCD ---
Author Organization [facility] Care Team Providers Care Bowling Floor Desk Clerk Name Role Phone Dr. Edgard Avila Primary Care Provider Dr. Edgard Avila Referring Provider Dr. Jose Rueda Attending Provider [phone] Dr. Edgard Avila Primary Care Provider Dr. Edgard Avila Referring Provider [phone] Jose Rueda Attending Provider [phone] Cristel Gomez Attending Provider Unavailable Dr. Joel Sher Attending Provider Dr. Joel Sher Other Provider [phone] Guillermo Barry Primary Care Provider [phone] Guillermo Barry Referring Provider Koko Chavez Attending Unavailable Miedel, Lanette Primary Care Unavailable Jazedel, Lanette Referring Unavailable Arnaudel, Lanette Attending Unavailable Arnaudel, Lanette Primary Care Unavailable Jose Rueda Attending Unavailable Guillermo Barry Referring Unavailable Guillermo Barry Primary Care Unavailable Jose Rueda Attending Unavailable Guillermo Barry Referring Unavailable Jazedel, Lanette Primary Care Unavailable Jazedel, Lanette Attending Unavailable Miedel, Lanette Referring Unavailable Miedel, Lanette Primary Care Unavailable Tho Landaverde Consulting Unavailable Miedel, Lanette Attending Unavailable Miedel, Lanette Referring Unavailable Miedel, Lanette Primary Care Unavailable Medications Current Medications Medication Drug Class(es) Dates Sig (Normalized) Sig (Original) ascorbic acid 500 mg oral tablet (4 sources) Vitamin C Start: 06-26-2020 take 500 mg by mouth once daily Ascorbic Acid (Vitamin C) Active 500 MG PO DAILY June 25, 2020 11:00pm aspirin 81 mg delayed release oral tablet (1 source) Platelet Aggregation Inhibitor, Nonsteroidal Anti-inflammatory Drug Start: 08-16-2022 take 81 mg by mouth once daily Aspirin Active 81 MG PO DAILY August 16, 2022 12:00am cholecalciferol 0.125 mg oral capsule (4 sources) Vitamin D Start: 06-26-2020 take 125 ug by mouth once daily Cholecalciferol (Vitamin D3) Active 125 MCG PO DAILY June 25, 2020 11:00pm donepezil hydrochloride 10 mg oral tablet (1 source) Start: 08-10-2022 take 10 mg by mouth once daily at bedtime Donepezil Active 10 MG PO AT BEDTIME August 10, 2022 12:00am Begin after completing one month of treatment of donepezil 5mg nightly ubidecarenone 100 mg oral capsule (4 sources) Start: 06-26-2020 Coenzyme Q10 Active 100 MG PO DAILY June 25, 2020 11:00pm Problems Active Problems Problem Classification Problem Date Documented Da te Episodic/Chronic Delirium, dementia, and amnestic and other cognitive disorders (2 sources) Dementia; Translations: [Mild dementia] 08-10-2022 Chronic Other hereditary and degenerative nervous system conditions (4 sources) Impaired cognition; Translations: [Mild cognitive impairment, so stated] 08-10-2022 Chronic Other hereditary and degenerative nervous system conditions (3 sources) Mild cognitive impairment, so stated; Translations: [Mild cognitive impairment, so stated] Chronic Other screening for suspected conditions (not mental disorders or infectious disease) (2 sources) Patient encounter status; Translations: [Encounter for screening for malignant neoplasm of colon] 08-16-2022 Episodic Residual codes; unclassified (1 source) Memory impairment; Translations: [Other amnesia] 08-16-2022 Episodic Past or Other Problems Problem Classification Problem Date Documented Da te Episodic/Chronic Syncope (1 source) Syncope and collapse; Translations: [Syncope and collapse] Onset: 09-20-2024 Episodic Results Test Name Value Interpretation Reference Range Facility Neurology Visit Reporton Neurology Visit Report [facility] [address] [place] [address], [address] [place] [id number] OFFICE VISIT Date of Service: 07/08/25 MR#: [id number] Acct: [id number] Name: JAYDEN MAJOR Rep #: [id number] : 1950 Provider: Dr. Jose salgado MD Age/Sex: 74/M Location: [facility] Status: Signed HPI HPI Chief Complaint: Details: Interim History: Jayden returns for follow-up visit. He is accompanied by his . He has a history of hypertension and initially presented to this office in 2019 for evaluation of episodes of altered consciousness.??? In June 2020, he had 3 episodes of change in level of consciousness that occurred while seated.??? I suspect that all 3 episodes were due to normal progression to sleep while seated.??? He felt tired when these episodes occurred and stated that he felt like he typically does when he is about to take a nap at the onset of these episodes.??? He did not exhibit any tongue biting, urinary incontinence, clonus or postictal confusion and lethargy.??? My suspicion is low for epilepsy or TIA.??? He did not report a night time sleep pattern suggestive of sleep apnea and he does not commonly nap during the day.??? His neurological exam at this office at that time was unremarkable apart from decreased vibratory sensation in the feet.??? He was seen in the emergency room on 06/14/2020.??? A head CT was unremarkable.??? An EKG revealed sinus rhythm.??? Laboratory studies revealed a mildly elevated serum glucose and he was felt to have borderline diabetes mellitus. ???Apart from laboratory studies, the patient did not wish to pursue further evaluation with head MRI and EEG at the time of his assessment in June 2020. He generally does not nap during the day.??? Per prior discussion, he infrequently snored at night and no apnea was witnessed during sleep; he reported that he has felt well rested when he awakens in the morning.??? He has seen an ENT specialist regarding left-sided hearing loss. On subsequent evaluation at this office, he presented with a history of progressive memory difficulties since 2019. He has a tendency to forget conversations and to repeat conversations. He has a tendency to misplace objects. He does not become lost in familiar surroundings. He remains independent in basic activities of daily living. He graduated from high school. His mother had dementia. Mini-Mental status exam score was 20/30 in March 2022, 23/30 in August 2022, 22/30 in December 2022, and 20/30 in July 2024. Donepezil was initiated in August 2022 and the patient reported that he initially experienced slight improvement of his memory. No further change of his memory has been noted since his last visit in 2023. He has tolerated donepezil well. Physical Exam: Neuro: The patient is awake; he is mildly bradyphrenic; he repeats conversations; speech is fluent; Mini-Mental status exam score is 22/30 Neck: No bruits Heart: Regular rate and rhythm Supplemental Info EKG (06/14/2020): Normal sinus rhythm Poor R- wave Progression Brain CT (06/14/2020): No acute intracranial process. CBC, thiamine, B12, folate, TSH (12/06/2021): WBC 4.3 (low) B12 353 (near low end of normal range) Head MRI (04/21/2022): FINDINGS: There is mild cerebral atrophy with widening of the extra-axial spaces and ventricular dilatation. There are a limited number of small white matter hyperintensities, distributed throughout the deep white matter tracts of the cerebral hemispheres, consistent with mild chronic white matter ischemic changes. There is no evidence for recent intracranial ischemia or other cause of cytotoxic edema on diffusion weighted imaging (DWI). Normal T2* images of the brain without demonstrated susceptibility artifact. There is no demonstrated hemosiderin stain. Normal bilateral basal ganglia. Normal thalami. There is no extra-axial fluid accumulation. Normal flow voids within the major intracranial circulation suggesting patency by spin echo criteria. Normal venous enhancement. There is no enhancing intra-axial or extra-axial abnormality. No focal brain parenchymal edema or lesions or abnormal enhancement is seen. There is no abnormal thickening or enhancement of the meninges or dura Normal sella turcica, pituitary gland, infundibular stalk, optic chiasm and hypothalamus. Normal tectal plate and pineal gland. Normal midbrain, modesta and medulla. Normal cerebellum. Normal basal cisterns. Normal bilateral temporal bones. Normal bilateral internal auditory canals. No demonstrated orbital abnormality, within the constraints of a routine brain study. Normal visualized paranasal sinuses. Normal calvarium and skull base. Normal visualized soft tissue structures. Normal visualized upper cervical spine. IMPRESSION: 1. Involutional changes of the brain, as described above. 2. No acute infarct or intracranial hemorrhage 3. No suspicio (more content not included)... Normal [facility] Carotid Duplex Ultrasoundon 08-27-2024 Carotid Duplex Ultrasound [facility] [address] [place] [address] Carotid Duplex Ultrasound 08/27/24 1109 MR#: [id number] Acct: [id number] Name: JAYDEN MAJOR Rep #: [id number] : 1950 73 From: Koko Chavez MD Attending Dr: Dr. Lanette Contreras MD Status: REG CLI Ordering Dr: Lanette Contreras MD Date: 08/27/24 Location: [facility] Sex: M C Admitted: Reason For Study: Syncope Rt. Velocities/BP Lt. Velocities/BP Prox CCA 83.4/9.7 cm/sec. Prox CCA 75.9/11.6 cm/sec. Mid CCA 63.6/11.6 cm/sec. Mid CCA 76.8/11.6 cm/sec. Dist CCA 57/11.6 cm/sec. Dist CCA 61.7/9.7 cm/sec. Prox ICA 50.9/10.2 cm/sec. Prox ICA 46.6/8.8 cm/sec. Mid ICA 48.7/11.3 cm/sec. Mid ICA 59.8/18.2 cm/sec. Dist ICA 79.5/20.1 cm/sec. Dist ICA 56.4/18.2 cm/sec. Rt. ICA/CCA = 1.25. Lt. ICA/CCA = 0.78. Prox ECA 101.4/11.3 cm/sec. Prox ECA 95.7/13.5 cm/sec. Rt. Vert. 38.6/9.5 cm/sec. Lt. Vert. 3386.6 cm/sec. Right Extracranial There is intimal thickening but no significant atherosclerotic plaque noted in the right common carotid artery. There is intimal thickening but no significant atherosclerotic plaque noted in the right internal carotid artery. There is intimal thickening but no significant atherosclerotic plaque noted in the right external carotid artery. Antegrade flow is noted in the right vertebral artery. Left Extracranial There is intimal thickening but no significant atherosclerotic plaque noted in the left common carotid artery. There is heterogeneous, irregular atherosclerotic plaque noted in the left internal carotid artery. There is intimal thickening but no significant atherosclerotic plaque noted in the left external carotid artery. Antegrade flow is noted in the left vertebral artery. Procedure Carotid Duplex [id number]. This is a Carotid Duplex examination using B-mode, color flow and specral Doppler. Exam performed in department. VL/Carotid Duplex Ultrasound Interpretation Summary Normal right extracranial internal carotid. Mild (<50%) stenosis left extracranial internal carotid. Patent and antegrade vertebrals bilaterally. Ordering Physician: Lanette Contreras Referring Physician: Lanette Contreras Performed By: Dee Dee Johnson RVT 08/27/249 Date Koko Chavez MD CC: Dr. Lanette Contreras MD Date Dictated: 08/27/24 110 Date Transcribed: 08/27/241648 Healthcare Recruiter: Signed Normal [facility] CBC W/Diff, Automatedon 11-2 Absolute Lymph 1.65 X10 3/uL Normal 0.83-4.51 [facility] Comment on above: Order Comment: DR. Jed PICKETT GETS A1C CMP CBCD LIPID DR. LANDAVERDE GETS PSAD Performed By: #### L 100.0100, L500.4050, L500.4100, L501.9940, L501.9985 #### [facility] [address] [place], [address] Absolute Neut 2.8 X10 3/uL Normal 2.0-7.7 [facility] Comment on above: Order Comment: DR. Jed PICKETT GETS A1C CMP CBCD LIPID DR. LANDAVERDE GETS PSAD Performed By: #### L 100.0100, L500.4050, L500.4100, L501.9940, L501.9985 #### [facility] [address] [place], [address] Basophils/100 WBC (Bld) 0.6 % Normal 0-1 [facility] Comment on above: Order Comment: DR. Jed PICKETT GETS A1C CMP CBCD LIPID DR. LANDAVERDE GETS PSAD Performed By: #### L 100.0100, L500.4050, L500.4100, L501.9940, L501.9985 #### [facility] [address] [place], [address] Eosinophils/100 WBC (Bld) 3.9 % Normal 0-5 [facility] Comment on above: Order Comment: DR. Jed PICKETT GETS A1C CMP CBCD LIPID DR. LANDAVERDE GETS PSAD Performed By: #### L 100.0100, L500.4050, L500.4100, L501.9940, L501.9985 #### [facility] [address] [place], [address] Erythrocyte distribution width (RBC) [Ratio] 12.2 % Normal 11.6-14.6 [facility] Comment on above: Order Comment: DR. Jed PICKETT GETS A1C CMP CBCD LIPID DR. LANDAVERDE GETS PSAD Performed By: #### L 100.0100, L500.4050, L500.4100, L501.9940, L501.9985 #### [facility] [address] [place], [address] Hematocrit (Bld) [Volume fraction] 49.3 % Normal 40-54 [facility] Comment on above: Order Comment: DR. Jed PICKETT GETS A1C CMP CBCD LIPID DR. LANDAVERDE GETS PSAD Performed By: #### L 100.0100, L500.4050, L500.4100, L501.9940, L501.9985 #### [facility] [address] [place], [address] Hemoglobin (Bld) [Mass/Vol] 16.2 g/dL Normal 13.0-16.5 [facility] Comment on above: Order Comment: DR. Jed PICKETT GETS A1C CMP CBCD LIPID DR. LANDAVERDE GETS PSAD Performed By: #### L 100.0100, L500.4050, L500.4100, L501.9940, L501.9985 #### [facility] [address] [place], [address] IG% 0.600 Normal 0.0-0.9 [facility] Comment on above: Order Comment: DR. Jed PICKETT GETS A1C CMP CBCD LIPID DR. LANDAVERDE GETS PSAD Result Comment: IG% - Immature Granulocytes (promyelocytes, myelocytes and metamyelocytes) > 1% indicates that a LEFT SHIFT is Present. Performed By: #### L 100.0100, L500.4050, L500.4100, L501.9940, L501.9985 #### [facility] [address] [place], [address] Lymphocytes/100 WBC (Bld) 32.1 % Normal 19-41 [facility] Comment on above: Order Comment: DR. Jed PICKETT GETS A1C CMP CBCD LIPID DR. LANDAVERDE GETS PSAD Performed By: #### L 100.0100, L500.4050, L500.4100, L501.9940, L501.9985 #### [facility] [address] [place], [address] MCH (RBC) [Entitic mass] 30.7 pg Normal 27.0-32.0 [facility] Comment on above: Order Comment: DR. Jed PICKETT GETS A1C CMP CBCD LIPID DR. LANDAVERDE GETS PSAD Performed By: #### L 100.0100, L500.4050, L500.4100, L501.9940, L501.9985 #### [facility] [address] [place], [address] MCHC (RBC) [Mass/Vol] 32.9 g/dL Normal 32-36 [facility] Comment on above: Order Comment: DR. Jed PICKETT GETS A1C CMP CBCD LIPID DR. LANDAVERDE GETS PSAD Performed By: #### L 100.0100, L500.4050, L500.4100, L501.9940, L501.9985 #### [facility] [address] [place], [address] MCV (RBC) [Entitic vol] 93.5 fL Normal 80-94 [facility] Comment on above: Order Comment: DR. Jed PICKETT GETS A1C CMP CBCD LIPID DR. LANDAVERDE GETS PSAD Performed By: #### L 100.0100, L500.4050, L500.4100, L501.9940, L501.9985 #### [facility] [address] [place], [address] Monocytes/100 WBC (Bld) 8.6 % Normal 0-10 [facility] Comment on above: Order Comment: DR. Jed PICKETT GETS A1C CMP CBCD LIPID DR. LANDAVERED GETS PSAD Performed By: #### L 100.0100, L500.4050, L500.4100, L501.9940, L501.9985 #### [facility] [address] [place], [address] Neutrophils/100 WBC (Bld) 54.2 % Normal 47-70 [facility] Comment on above: Order Comment: DR. Jed PICKETT GETS A1C CMP CBCD LIPID DR. LANDAVERDE GETS PSAD Performed By: #### L 100.0100, L500.4050, L500.4100, L501.9940, L501.9985 #### [facility] [address] [place], [address] Nucleated RBC (Bld) [#/Vol] 0 10*3/uL Normal 0-5 [facility] Comment on above: Order Comment: DR. Jed PICKETT GETS A1C CMP CBCD LIPID DR. LANDAVERDE GETS PSAD Performed By: #### L 100.0100, L500.4050, L500.4100, L501.9940, L501.9985 #### [facility] [address] [place], [address] Platelet mean volume (Bld) [Entitic vol] 11.1 fL Normal 6.2-12.0 [facility] Comment on above: Order Comment: DR. Jed PICKETT GETS A1C CMP CBCD LIPID DR. LANDAVERDE GETS PSAD Performed By: #### L 100.0100, L500.4050, L500.4100, L501.9940, L501.9985 #### [facility] [address] [place], [address] Platelets (Bld) [#/Vol] 165 10*3/uL Normal 150-450 [facility] Comment on above: Order Comment: DR. Jed PICKETT GETS A1C CMP CBCD LIPID DR. LANDAVERDE GETS PSAD Performed By: #### L 100.0100, L500.4050, L500.4100, L501.9940, L501.9985 #### [facility] [address] [place], [address] RBC (Bld) [#/Vol] 5.27 10*6/uL Normal 4.6-6.2 [facility] Comment on above: Order Comment: DR. Jed PICKETT GETS A1C CMP CBCD LIPID DR. LANDAVERDE GETS PSAD Performed By: #### L 100.0100, L500.4050, L500.4100, L501.9940, L501.9985 #### [facility] [address] [place], [address] RDW SD 42.2 fl Normal 35.1-43.9 [facility] Comment on above: Order Comment: DR. Jed PICKETT GETS A1C CMP CBCD LIPID DR. LANDAVERDE GETS PSAD Performed By: #### L 100.0100, L500.4050, L500.4100, L501.9940, L501.9985 #### [facility] [address] [place], [address] WBC (Bld) [#/Vol] 5.1 10*3/uL Normal 4.4-11.0 [facility] Comment on above: Order Comment: DR. Jed PICKETT GETS A1C CMP CBCD LIPID DR. LANDAVERDE GETS PSAD Performed By: #### L 100.0100, L500.4050, L500.4100, L501.9940, L501.9985 #### [facility] [address] [place], [address] Comprehensive Metabolic Prof ilon 07-30-2024 Albumin [Mass/Vol] 3.5 g/dL Normal 3.2-5.0 [facility] Comment on above: Order Comment: DR. Jed PICKETT GETS A1C CMP CBCD LIPID DR. LANDAVERDE GETS PSAD Performed By: #### L 100.0100, L500.4050, L500.4100, L501.9940, L501.9985 #### [facility] [address] [place], [address] Albumin/Globulin [Mass ratio] 1.0 {ratio} Normal 0.9-2.4 [facility] Comment on above: Order Comment: DR. Jed PICKETT GETS A1C CMP CBCD LIPID DR. LANDAVERDE GETS PSAD Performed By: #### L 100.0100, L500.4050, L500.4100, L501.9940, L501.9985 #### [facility] [address] [place], [address] ALK P 92 U/L Normal 45-117 [facility] Comment on above: Order Comment: DR. Jed PICKETT GETS A1C CMP CBCD LIPID DR. LANDAVERDE GETS PSAD Performed By: #### L 100.0100, L500.4050, L500.4100, L501.9940, L501.9985 #### [facility] [address] [place], [address] ALT [Catalytic activity/Vol] 26 U/L Normal 16-61 [facility] Comment on above: Order Comment: DR. Jed PICKETT GETS A1C CMP CBCD LIPID DR. LANDAVERDE GETS PSAD Performed By: #### L 100.0100, L500.4050, L500.4100, L501.9940, L501.9985 #### [facility] [address] [place], [address] AST [Catalytic activity/Vol] 21 U/L Normal 15-37 [facility] Comment on above: Order Comment: DR. Jed PICKETT GETS A1C CMP CBCD LIPID DR. LANDAVERDE GETS PSAD Performed By: #### L 100.0100, L500.4050, L500.4100, L501.9940, L501.9985 #### [facility] [address] [place], [address] Bilirubin [Mass/Vol] 1.10 mg/dL High 0.20-1.00 [facility] Comment on above: Order Comment: DR. Jed PICKETT GETS A1C CMP CBCD LIPID DR. LANDAVERDE GETS PSAD Result Comment: For patients on eltrombopag therapy, use of Dimension [place] TBIL is not recommended. Performed By: #### L 100.0100, L500.4050, L500.4100, L501.9940, L501.9985 #### [facility] [address] [place], [address] BUN/CRE 13.5 RATIO Normal 10-20 [facility] Comment on above: Order Comment: DR. Jed PICKETT GETS A1C CMP CBCD LIPID DR. LANDAVERDE GETS PSAD Performed By: #### L 100.0100, L500.4050, L500.4100, L501.9940, L501.9985 #### [facility] [address] [place], [address] CA,Total 8.9 mg/dL Normal 8.5-10.1 [facility] Comment on above: Order Comment: DR. Jed PICKETT GETS A1C CMP CBCD LIPID DR. LANDAVERDE GETS PSAD Performed By: #### L 100.0100, L500.4050, L500.4100, L501.9940, L501.9985 #### [facility] [address] [place], [address] Chloride [Moles/Vol] 108 mmol/L High 98-107 [facility] Comment on above: Order Comment: DR. Jed PICKETT GETS A1C CMP CBCD LIPID DR. LANDAVERDE GETS PSAD Performed By: #### L 100.0100, L500.4050, L500.4100, L501.9940, L501.9985 #### [facility] [address] [place], [address] CO2 [Moles/Vol] 28.0 mmol/L Normal 21.0-32.0 [facility] Comment on above: Order Comment: DR. Jed PICKETT GETS A1C CMP CBCD LIPID DR. LANDAVERDE GETS PSAD Performed By: #### L 100.0100, L500.4050, L500.4100, L501.9940, L501.9985 #### [facility] [address] [place], [address] Creatinine [Mass/Vol] 1.11 mg/dL Normal 0.70-1.30 [facility] Comment on above: Order Comment: DR. Jed PICKETT GETS A1C CMP CBCD LIPID DR. LANDAVERDE GETS PSAD Result Comment: The validity of the calculated GFR GFRAA in patients over 70 years has not been determined. Clinical correlation is essential. Performed By: #### L 100.0100, L500.4050, L500.4100, L501.9940, L501.9985 #### [facility] [address] [place], [address] EST GFR - AA 84 mL/min Normal >60 [facility] Comment on above: Order Comment: DR. Jed PICKETT GETS A1C CMP CBCD LIPID DR. LANDAVERDE GETS PSAD Result Comment: Afri can Macedonian GFR Calc Performed By: #### L 100.0100, L500.4050, L500.4100, L501.9940, L501.9985 #### [facility] [address] [place], [address] GAP 4 Low 5-15 [facility] Comment on above: Order Comment: DR. Jed PICKETT GETS A1C CMP CBCD LIPID DR. LANDAVERDE GETS PSAD Performed By: #### L 100.0100, L500.4050, L500.4100, L501.9940, L501.9985 #### [facility] [address] [place], [address] GFR/1.73 sq M.predicted among non-blacks MDRD (S/P/Bld) [Vol rate/Area] 69 mL/min/{1.73_m2} Normal >60 [facility] Comment on above: Order Comment: DR. Jed PICKETT GETS A1C CMP CBCD LIPID DR. LANDAVERDE GETS PSAD Result Comment: Non- GFR Calc Performed By: #### L 100.0100, L500.4050, L500.4100, L501.9940, L501.9985 #### [facility] [address] [place], [address] Globulin (S) [Mass/Vol] 3.4 g/dL Normal 2.2-4.2 [facility] Comment on above: Order Comment: DR. Jed PICKETT GETS A1C CMP CBCD LIPID DR. LANDAVERDE GETS PSAD Performed By: #### L 100.0100, L500.4050, L500.4100, L501.9940, L501.9985 #### [facility] [address] [place], [address] Glucose [Mass/Vol] 93 mg/dL Normal 74-106 [facility] Comment on above: Order Comment: DR. Jed PICKETT GETS A1C CMP CBCD LIPID DR. LANDAVERDE GETS PSAD Performed By: #### L 100.0100, L500.4050, L500.4100, L501.9940, L501.9985 #### [facility] [address] [place], [address] Potassium [Moles/Vol] 4.5 mmol/L Normal 3.5-5.1 [facility] Comment on above: Order Comment: DR. Jed PICKETT GETS A1C CMP CBCD LIPID DR. LANDAVERDE GETS PSAD Performed By: #### L 100.0100, L500.4050, L500.4100, L501.9940, L501.9985 #### [facility] [address] [place], [address] Sodium [Moles/Vol] 140 mmol/L Normal 136-145 [facility] Comment on above: Order Comment: DR. Jed PICKETT GETS A1C CMP CBCD LIPID DR. LANDAVERDE GETS PSAD Performed By: #### L 100.0100, L500.4050, L500.4100, L501.9940, L501.9985 #### [facility] [address] [place], [address] T PROT 6.9 g/dL Normal 6.4-8.2 [facility] Comment on above: Order Comment: DR. Jed PICKETT GETS A1C CMP CBCD LIPID DR. LANDAVERDE GETS PSAD Performed By: #### L 100.0100, L500.4050, L500.4100, L501.9940, L501.9985 #### [facility] [address] [place], [address] Urea nitrogen [Mass/Vol] 15 mg/dL Normal 7-18 [facility] Comment on above: Order Comment: DR. Jed PICKETT GETS A1C CMP CBCD LIPID DR. LANDAVERDE GETS PSAD Performed By: #### L 100.0100, L500.4050, L500.4100, L501.9940, L501.9985 #### [facility] [address] [place], [address] Hemoglobin A1con 07-30-2024 HbA1c (Bld) [Mass fraction] 5.7 % High 3.8-5.6 [facility] Comment on above: Order Comment: DR. Jed PICKETT GETS A1C CMP CBCD LIPID DR. LANDAVERDE GETS PSAD Result Comment: Norm al < 5.7 % Prediabetic 5.7 - 6.4 % Diabetic >or= 6.5 % Please note range changes. Performed By: #### L 100.0100, L500.4050, L500.4100, L501.9940, L501.9985 #### [facility] [address] [place], [address] Lipid Profileon 07-30-2024 Cholesterol [Mass/Vol] 140 mg/dL Normal 200 [facility] Comment on above: Order Comment: DR. Jed PICKETT GETS A1C CMP CBCD LIPID DR. LANDAVERDE GETS PSAD Result Comment: <200 mg/dL Desirable 200-240 mg/dL Borderline >240 mg/dL High Risk Performed By: #### L 100.0100, L500.4050, L500.4100, L501.9940, L501.9985 #### [facility] [address] [place], [address] Cholesterol in HDL [Mass/Vol] 48 mg/dL Normal [facility] Comment on above: Order Comment: DR. Jed PICKETT GETS A1C CMP CBCD LIPID DR. LANDAVERDE GETS PSAD Result Comment: The drugs N-Acetylcysteine and Metamizole may falsely depress this assay. Reference Range HDL <40 mg/dL Low HDL Cholesterol HDL >or= 60 mg/dL High HDL Cholesterol Performed By: #### L 100.0100, L500.4050, L500.4100, L501.9940, L501.9985 #### [facility] [address] [place], [address] Cholesterol in LDL [Mass/Vol] 74 mg/dL Normal 0-130 [facility] Comment on above: Order Comment: DR. Jed PICKETT GETS A1C CMP CBCD LIPID DR. LANDAVERDE GETS PSAD Performed By: #### L 100.0100, L500.4050, L500.4100, L501.9940, L501.9985 #### [facility] [address] [place], [address] Cholesterol in VLDL [Mass/Vol] 18 mg/dL Normal 5-40 [facility] Comment on above: Order Comment: DR. Jed PICKETT GETS A1C CMP CBCD LIPID DR. LANDAVERDE GETS PSAD Performed By: #### L 100.0100, L500.4050, L500.4100, L501.9940, L501.9985 #### [facility] [address] [place], [address] Triglyceride [Mass/Vol] 90 mg/dL Normal [facility] Comment on above: Order Comment: DR. Jed PICKETT GETS A1C CMP CBCD LIPID DR. LANDAVERDE GETS PSAD Result Comment: The drugs N-Acetylcysteine and Metamizole may falsely depress this assay. Serum Triglycerides Reference Interval Normal <150 mg/dL Borderline high 150 - 199 mg/dL High 200 - 499 mg/dL Very High > or = 500 mg/dL Performed By: #### L 100.0100, L500.4050, L500.4100, L501.9940, L501.9985 #### [facility] [address] [place], [address] PSA,Total- Diagnosticon 11-2 PSA, DIAGNOSTIC 3.87 ng/mL Normal 0.0-4.0 [facility] Comment on above: Order Comment: DR. Jed PICKETT GETS A1C CMP CBCD LIPID DR. LANDAVERDE GETS PSAD Result Comment: This test was performed using the TPSA assay method for the [employer] chemistry system. Values obtained with different assay methods cannot be used interchangably. When changing PSA assays in the course of monitoring a patient, additional sequential testing should be carried out to confirm baseline values. Performed By: #### L 100.0100, L500.4050, L500.4100, L501.9940, L501.9985 #### [facility] [address] [place], [place], [address] Neurology Visit Reporton Neurology Visit Report [facility] [address], [address] [place], [place] [address] OFFICE VISIT Date of Service: 07/24/24 MR#: [id number] Acct: [id number] Name: JAYDEN MAJOR Rep #: [id number] : 1950 Provider: Dr. Jose salgado MD Age/Sex: 73/M Location: [facility] Status: Signed HPI HPI Chief Complaint: Details: Interim History: Jayden returns for follow-up visit. He is accompanied by his . He has a history of hypertension and initially presented to this office in 2019 for evaluation of episodes of altered consciousness.??? In June 2020, he had 3 episodes of change in level of consciousness that occurred while seated.??? I suspect that all 3 episodes were due to normal progression to sleep while seated.??? He felt tired when these episodes occurred and stated that he felt like he typically does when he is about to take a nap at the onset of these episodes.??? He did not exhibit any tongue biting, urinary incontinence, clonus or postictal confusion and lethargy.??? My suspicion is low for epilepsy or TIA.??? He did not report a night time sleep pattern suggestive of sleep apnea and he does not commonly nap during the day.??? His neurological exam at this office at that time was unremarkable apart from decreased vibratory sensation in the feet.??? He was seen in the emergency room on 06/14/2020.??? A head CT was unremarkable.??? An EKG revealed sinus rhythm.??? Laboratory studies revealed a mildly elevated serum glucose and he was felt to have borderline diabetes mellitus. ???Apart from laboratory studies, the patient did not wish to pursue further evaluation with head MRI and EEG at the time of his assessment in June 2020. He generally does not nap during the day.??? He infrequently snores at night.??? No apnea has been witnessed during sleep.??? He reported that he has felt well rested when he awakens in the morning.??? He has seen an ENT specialist regarding left-sided hearing loss. On subsequent evaluation at this office, he presented with a history of progressive memory difficulties since 2019. He has a tendency to forget conversations and to repeat conversations. He has a tendency to misplace objects. He does not become lost in familiar surroundings. He remains independent in basic activities of daily living. He graduated from high school. His mother had dementia. Mini-Mental status exam score i was 20/30 in March 2022, 23/30 in August 2022 and 22/30 in December 2022. Donepezil was initiated in August 2022 and the patient reported that he initially experienced slight improvement of his memory. No further change of his memory has been noted since his last visit in 2022. He has tolerated donepezil well. Physical Exam: Neuro: The patient is awake; he is mildly bradyphrenic; speech is fluent; Mini-Mental status exam score is 20/30 Neck: No bruits Heart: Regular rate and rhythm Supplemental Info EKG (06/14/2020): Normal sinus rhythm Poor R- wave Progression Chest x-ray (06/14/2020): No active pulmonary disease Brain CT (06/14/2020): No acute intracranial process. CBC, BMP (06/14/2020): Glucose 127 (H) Serum glucose, hemoglobin A1c, TSH (07/10/2020): Glucose 107 (slightly elevated), hemoglobin A1c (5.8 (slightly elevated) CBC, BMP, lipid profile, hemoglobin A1c (06/15/2021): MCV 94.1 (elevated), hemoglobin A1c 5.7 (marginally elevated) CBC, thiamine, B12, folate, TSH (12/06/2021): WBC 4.3 (low) B12 353 (near low end of normal range) Head MRI (04/21/2022): FINDINGS: There is mild cerebral atrophy with widening of the extra-axial spaces and ventricular dilatation. There are a limited number of small white matter hyperintensities, distributed throughout the deep white matter tracts of the cerebral hemispheres, consistent with mild chronic white matter ischemic changes. There is no evidence for recent intracranial ischemia or other cause of cytotoxic edema on diffusion weighted imaging (DWI). Normal T2* images of the brain without demonstrated susceptibility artifact. There is no demonstrated hemosiderin stain. Normal bilateral basal ganglia. Normal thalami. There is no extra-axial fluid accumulation. Normal flow voids within the major intracranial circulation suggesting patency by spin echo criteria. Normal venous enhancement. There is no enhancing intra-axial or extra-axial abnormality. No focal brain parenchymal edema or lesions or abnormal enhancement is seen. There is no abnormal thickening or enhancement of the meninges or dura Normal sella turcica, pituitary gland, infundibular stalk, optic chiasm and hypothalamus. Normal tectal plate and pineal gland. Normal midbrain, modesta and medulla. Normal cerebellum. Normal basal cisterns. Normal bilateral temporal bones. Normal bilateral internal auditory canals. No demonstrated orbital abnormality, within the constraints of a routine brain study. Normal (more content not included)... Normal [facility] Absolute lymphocyte countOrd ered By: Dr. Avila on 07-20-2022 Lymphocytes Auto (Unsp spec) [#/Vol] 1.75 10*3/uL 0.83-4.51 [facility] Basophil percentageOrdered B y: Dr. Avila on 07-20-2022 Basophils/100 WBC (Bld) 0.6 % 0-1 [facility] Chloride [Moles/Vol] 107 mmol/L 98-107 [facility] Cholesterol [Mass/Vol] 142 mg/dL <200 [facility] Comment on above: <200 mg/dL Desirable 200-240 mg/dL Borderline >240 mg/dL High Risk Eosinophils/100 WBC (Bld) 3.3 % 0-5 [facility] Glucose [Mass/Vol] 100 mg/dL 74-106 [facility] Comment on above: Fasting Glucose resu lt from 100 to 125 mg/dL suggests IMPAIRED HOMEOSTASIS per A.D.A. criteria. Neutrophils (Bld) [#/Vol] 2.5 10*3/uL 2.0-7.7 [facility] Neutrophils/100 WBC (Bld) 51.4 % 47-70 [facility] Potassium [Moles/Vol] 4.5 mmol/L 3.5-5.1 [facility] Sodium [Moles/Vol] 141 mmol/L 136-145 [facility] Triglyceride [Mass/Vol] 88 mg/dL <199 [facility] Comment on above: The drugs N-Acetylcy steine and Metamizole may falsely depress this assay.Serum Triglycerides Reference Interval Normal <150 mg/dL Borderline high 150 - 199 mg/dL High 200 - 499 mg/dL Very High > or = 500 mg/dL WBC (Bld) [#/Vol] 4.8 10*3/uL 4.4-11.0 [facility] Blood erythrocytes count (nu mber/volume)Ordered By: Dr. Avila on 07-20-2022 RBC (Bld) [#/Vol] 5.20 10*6/uL 4.6-6.2 [facility] Blood hemoglobin measurement (mass/volume)Ordered By: Dr. Avila on 07-20-2022 Hemoglobin (Bld) [Mass/Vol] 16.6 g/dL 13.0-16.5 [facility] Blood lymphocytes/100 leukoc ytesOrdered By: Dr. Avila on 07-20-2022 Lymphocytes/100 WBC (Bld) 36.6 % 19-41 [facility] Blood monocytes/100 leukocyt esOrdered By: Dr. Avila on 07-20-2022 Monocytes/100 WBC (Bld) 7.7 % 0-10 [facility] Blood platelet mean volumeOr dered By: Dr. Avila on 07-20-2022 Platelet mean volume (Bld) [Entitic vol] 10.8 fL 6.2-12.0 [facility] Determination of erythrocyte mean corpuscular volume (MCV)Ordered By: Dr. Avila on 07-20-2022 MCV (RBC) [Entitic vol] 94.2 fL 80-94 [facility] Hematocrit Auto (Bld) [Volum e fraction]Ordered By: Dr. Avila on 07-20-2022 Hematocrit (Bld) [Volume fraction] 49.0 % 40-54 [facility] - Chemistry and C hemistry - challengeOrdered By: Dr. Avila on 07-20-2022 CO2 [Moles/Vol] 29.0 mmol/L 21.0-32.0 [facility] Urea nitrogen/Creatinine [Mass ratio] 15.8 mg/mg 10-20 [facility] - Hematology and Cell countsOrdered By: Dr. Avila on 07-20-2022 Erythrocyte distribution width (RBC) [Entitic vol] 42.8 fL 35.1-43.9 [facility] Erythrocyte distribution width (RBC) [Ratio] 12.3 % 11.6-14.6 [facility] Immature granulocytes/100 WBC (Bld) 0.400 % 0.0-0.9 [facility] Comment on above: IG% - Immature Granu locytes (promyelocytes, myelocytes and metamyelocytes) > 1% indicates that a LEFT SHIFT is Present. MCH (RBC) [Entitic mass] 31.9 pg 27.0-32.0 [facility] Nucleated RBC/100 WBC (Bld) [Ratio] 0 % 0-5 [facility] MCHC Auto (RBC) [Mass/Vol]Or dered By: Dr. Avila on 07-20-2022 MCHC (RBC) [Mass/Vol] 33.9 g/dL 32-36 [facility] No Panel InformationOrdered By: Dr. Avila on 07-20-2022 Estimated GFR (MDRD) Amer 101 mL/min >60 [facility] Comment on above: GFR Calc Estimated GFR (MDRD) Non-Af Amer 83 mL/min >60 [facility] Comment on above: Non- GFR Calc Prostate Specific Antigen Total 4.09 ng/mL 0.0-4.0 [facility] Comment on above: This test was perfor med using the TPSA assay method [facility] the[facility] ([place], [place] chemistry system. Values obtained with differentassay methods cannot be used interchangably.When changing PSA assays in the course of monitoring apatient, additional sequential testing should be carriedout to confirm baseline values. Platelets bldOrdered By: Dr. Avila on 07-20-2022 Platelets (Bld) [#/Vol] 169 10*3/uL 150-450 [facility] Serum or plasma calcium kathy urement (mass/volume)Ordered By: Dr. Avila on 07-20-2022 Calcium [Mass/Vol] 8.8 mg/dL 8.5-10.1 [facility] Serum or plasma cholesterol in HDL measurement (mass/volume)Ordered By: Dr. Avila on 07-20-2022 Cholesterol in HDL [Mass/Vol] 51 mg/dL >40 [facility] Comment on above: The drugs N-Acetylcy steine and Metamizole may falsely depress this assay. Reference Range HDL <40 mg/dL Low HDL Cholesterol HDL >or= 60 mg/dL High HDL Cholesterol Serum or plasma cholesterol in VLDL measurement (mass/volume)Ordered By: Dr. Avila on 07-20-2022 Cholesterol in VLDL [Mass/Vol] 18 mg/dL 5-40 [facility] Serum or plasma creatinine m easurement (mass/volume)Ordered By: Dr. Avila on 07-20-2022 Creatinine [Mass/Vol] 0.95 mg/dL 0.70-1.30 [facility] Comment on above: The validity of the calculated GFR & GFRAA in patients over 70 years has not been determined. Clinical correlation is essential. Serum or plasma low density lipoprotein (LDL) cholesterol measurement (mass/volume)Ordered By: Dr. Avila on 07-20-2022 Cholesterol in LDL [Mass/Vol] 73 mg/dL 0-130 [facility] Serum or plasma urea nitroge n measurement (mass/volume)Ordered By: Dr. Avila on 07-20-2022 Urea nitrogen [Mass/Vol] 15 mg/dL 7-18 [facility] Thin prep Papanicolaou smear with manual screeningOrdered By: Dr. Avila on 07-20-2022 Thin prep Papanicolaou smear with manual screening 5 5-15 [facility] Whole blood hemoglobin A1c/t otal hemoglobin ratio (mass fraction)Ordered By: Dr. Avila on 07-20-2022 HbA1c (Bld) [Mass fraction] 5.8 % 3.8-5.6 [facility] Comment on above: Normal < 5.7 % Predi abetic 5.7 - 6.4 % Diabetic >or= 6.5 % Please note range changes. Basophil percentageon 2021 Bilirubin [Mass/Vol] 0.90 mg/dL 0.20-1.00 [facility] Work Phone: Comment on above: For patients on eltr ombopag therapy, use of Dimension [place] TBIL is not recommended. Chloride [Moles/Vol] 107 mmol/L 98-[address] [facility] [address] [facility] Work Phone: Glucose [Mass/Vol] 98 mg/dL 74-106 [facility] Work Phone: Potassium [Moles/Vol] 4.0 mmol/L 3.5-5.1 [facility] Work Phone: Protein [Mass/Vol] 6.8 g/dL 6.4-8.2 [facility] Work Phone: Sodium [Moles/Vol] 141 mmol/L 136-145 [facility] Work Phone: WBC (Bld) [#/Vol] 4.3 10*3/uL 4.4-11.0 [facility] Work Phone: Blood erythrocytes count (nu mber/volume)on 04-01-2022 RBC (Bld) [#/Vol] 5.11 10*6/uL 4.6-6.2 [facility]: Blood hemoglobin measurement (mass/volume)on 04-01-2022 Hemoglobin (Bld) [Mass/Vol] 16.0 g/dL 13.0-16.5 [facility] Work Phone: Blood platelet mean volumeon 04-01-2022 Platelet mean volume (Bld) [Entitic vol] 10.7 fL 6.2-12.0 [facility] Work Phone: Determination of erythrocyte mean corpuscular volume (MCV)on 04-01-2022 MCV (RBC) [Entitic vol] 92.8 fL 80-94 [facility] Work Phone: Hematocrit Auto (Bld) [Volum e fraction]on 04-01-2022 Hematocrit (Bld) [Volume fraction] 47.4 % 40-54 [facility] Work Phone: Laboratory - Chemistry and C hemistry - challengeon 04-01-2022 ALP [Catalytic activity/Vol] 81 U/L 45-117 [facility] Work Phone: ALT [Catalytic activity/Vol] 28 U/L 16-61 [facility] Work Phone: CO2 [Moles/Vol] 27.0 mmol/L 21.0-32.0 [facility] Work Phone: Cobalamin (Vitamin B12) [Mass/Vol] 353 pg/mL 211-911 [facility] Work Phone: Globulin (S) [Mass/Vol] 3.4 g/dL 2.2-4.2 [facility] Work Phone: Urea nitrogen/Creatinine [Mass ratio] 13.0 mg/mg 10-20 [facility] Work Phone: Laboratory - Hematology and Cell countson 04-01-2022 Erythrocyte distribution width (RBC) [Entitic vol] 42.5 fL 35.1-43.9 [facility] Work Phone: Erythrocyte distribution width (RBC) [Ratio] 12.4 % 11.6-14.6 [facility] Work Phone: MCH (RBC) [Entitic mass] 31.3 pg 27.0-32.0 [facility] Work Phone: MCHC Auto (RBC) [Mass/Vol]on 04-01-2022 MCHC (RBC) [Mass/Vol] 33.8 g/dL 32-36 [facility] Work Phone: No Panel Informationon 04-01 Estimated GFR (MDRD) Amer 95 mL/min >60 [facility] Work Phone: Comment on above: GFR Calc Estimated GFR (MDRD) Non-Af Amer 79 mL/min >60 [facility] Work Phone: Comment on above: Non- GFR Calc Thyroid Stimulating Hormone (TSH) 1.17 uIU/mL 0.358-3.74 [facility] Work Phone: Whole Blood Vitamin B1 Level 139.6 nmol/L 66.5-200.0 [facility] Work Phone: Comment on above: Performed at: [address] [id number] Director: Sandra Friedman MD, Phone: [phone] Platelets bldon 04-01-2022 Platelets (Bld) [#/Vol] 165 10*3/uL 150-450 [facility] Work Phone: Serum or plasma albumin kathy urement (mass/volume)on 04-01-2022 Albumin [Mass/Vol] 3.4 g/dL 3.2-5.0 [facility] Work Phone: Serum or plasma albumin/glob ulin mass ratioon 04-01-2022 Albumin/Globulin [Mass ratio] 1.0 {ratio} 0.9-2.4 [facility] Work Phone: Serum or plasma calcium kathy urement (mass/volume)on 04-01-2022 Calcium [Mass/Vol] 8.6 mg/dL 8.5-10.1 [facility] Work Phone: Serum or plasma creatinine m easurement (mass/volume)on 04-01-2022 Creatinine [Mass/Vol] 1.00 mg/dL 0.70-1.30 [facility] Work Phone: Comment on above: The validity of the calculated GFR & GFRAA in patients over 70 years has not been determined. Clinical correlation is essential. Serum or plasma folate measu rement (mass/volume)on 04-01-2022 Folate [Mass/Vol] 18.80 ng/mL 3.1-55.4 [facility] Work Phone: Serum or plasma urea nitroge n measurement (mass/volume)on 04-01-2022 Urea nitrogen [Mass/Vol] 13 mg/dL 7-18 [facility] Work Phone: Thin prep Papanicolaou smear with manual screeningon 04-01-2022 Thin prep Papanicolaou smear with manual screening 18 U/L 15-37 [facility] Work Phone: Thin prep Papanicolaou smear with manual screening 7 5-15 [facility] Work Phone: Vital Signs Date Time Vital Sign Value Performing Clinician Leeann lund 10-12-2022 11:30-0500 Body temperature 96.8 [degF] Dr. Edgard Avila Work Phone: [facility] 10-12-2022 11:30-0500 Diastolic blood pressure 70 mm[Hg] Dr. Edgard Avila Work Phone: [facility] 10-12-2022 11:30-0500 Heart rate 53 /min Dr. Edgard Avila Work Phone: [facility] 10-12-2022 11:30-0500 Respiratory rate 16 /min Dr. Edgard Avila Work Phone: [facility] 10-12-2022 11:30-0500 SaO2% (BldA) [Mass fraction] 100 % Dr. Edgard Avila Work Phone: [facility] 10-12-2022 11:30-0500 Systolic blood pressure 143 mm[Hg] Dr. Edgard Avila Work Phone: [facility] 10-12-2022 09:07-0500 Body height 177.[address] Edgard Avila Work Phone: [facility] 10-12-2022 09:07-0500 Body mass index (BMI) [Ratio] 24.3 kg/m2 Dr. Edgard Avila Work Phone: [facility] 10-12-2022 09:07-0500 Body weight 77.[address] Edgard Avila Work Phone: [facility] 08-16-2022 09:02-0500 Body mass index (BMI) [Ratio] 25 kg/m2 Dr. Edgard Avila Work Phone: [facility] 08-16-2022 09:02-0500 Body weight 78.[address] Edgard Avila Work Phone: [facility] 08-10-2022 11:27-0500 Body mass index (BMI) [Ratio] 25 kg/m2 Dr. Edgard Avila Work Phone: [facility] 08-10-2022 11:27-0500 Body temperature 98.2 [degF] Dr. Edgard Avila Work Phone: [facility] 08-10-2022 11:27-0500 Body weight 79.[address] Edgard Avila Work Phone: [facility] 08-10-2022 11:27-0500 Diastolic blood pressure 70 mm[Hg] Dr. Edgard Avila Work Phone: [facility] 08-10-2022 11:27-0500 Heart rate 63 /min Dr. Edgard Avila Work Phone: [facility] 08-10-2022 11:27-0500 Respiratory rate 16 /min Dr. Edgard Avila Work Phone: [facility] 08-10-2022 11:27-0500 Systolic blood pressure 136 mm[Hg] Dr. Edgard Avila Work Phone: [facility] 03-29-2022 09:58-0400 Body height 177.[address] Edgard Avila Work Phone: [facility] Work Phone: 03-29-2022 09:58-0400 Body mass index (BMI) [Ratio] 24.7 kg/m2 Dr. Edgard Avila Work Phone: [facility] Work Phone: 03-29-2022 09:58-0400 Body temperature 98.6 [degF] Dr. Edgard Avila Work Phone: [facility] Work Phone: 03-29-2022 09:58-0400 Body weight 78.[address] Edgard Avila Work Phone: [facility] Work Phone: 03-29-2022 09:58-0400 Diastolic blood pressure 82 mm[Hg] Dr. Edgard Avila Work Phone: [facility] Work Phone: 03-29-2022 09:58-0400 Heart rate 67 /min Dr. Edgard Avila Work Phone: [facility] Work Phone: 03-29-2022 09:58-0400 Respiratory rate 16 /min Dr. Edgard Avila Work Phone: [facility] Work Phone: 03-29-2022 09:58-0400 SaO2% (BldA) [Mass fraction] 99 % Dr. Edgard Avila Work Phone: [facility] Work Phone: 03-29-2022 09:58-0400 Systolic blood pressure 136 mm[Hg] Dr. Edgard Avila Work Phone: [facility] Work Phone: Encounters Encounter Date Encounter Type Care Provider Facility Start: 07-08-2025 End: 07-08-2025 ambulatory [facility] Facility:[facility] Start: 03-07-2025 ambulatory [facility] Facility: [facility] Start: 08-27-2024 [facility] Start: 08-27-2024 End: 08-27-2024 ambulatory [facility] Facility:[facility] Start: 08-26-2024 Encounter for genera l adult medical examination without abnormal findings [facility] Start: 07-30-2024 End: 07-30-2024 ambulatory [facility] Facility:[facility] Start: 07-24-2024 End: 07-24-2024 ambulatory [facility] Facility:[facility] Start: 10-12-2022 Non-patient / Non-visit Dr. Dawood Avila Work Phone: [facility] Start: 10-12-2022 End: 10-12-2022 Admission to same day surgery center Dr. Edgard Avila Work Phone: [facility] Start: 10-12-2022 End: 10-12-[address] Edgard Avila Work Phone: [facility] Work Phone: Start: 08-16-2022 Non-patient / Non-visit Dr. Dawood Avila Work Phone: [facility] Start: 08-10-2022 End: 08-10-[address] Edgard Avila Work Phone: [facility] Start: 07-20-2022 End: 07-20-2022 ambulatory [facility] Work Phone: Start: 07-20-2022 End: 07-20-2022 Patient encounter procedure [facility] Start: 04-22-2022 End: 04-22-[address] Edgard Avila Work Phone: [facility] Work Phone: Start: 04-22-2022 End: 04-22-[address] Edgard Avila Work Phone: [facility]-Pulmonary Services/Neurology Start: 04-21-2022 End: 04-21-[address] Edgard Avila Work Phone: [facility] Work Phone: Start: 04-21-2022 End: 04-21-[address] Edgard Avila Work Phone: [facility] Start: 04-01-2022 End: 04-01-[address] Edgard Avila Work Phone: [facility] Start: 03-29-2022 End: 03-29-[address] Edgard Avila Work Phone: [facility] Neurology Procedures Date Procedure Procedure Detail Performing Clinician Start: 10-12-[address] Edgard Avila Work Phone: Start: 04-21-2022 MRI of brain with contrast Dr. Edgard Avila Work Phone: Plan of Treatment Date Care Activity Detail Author Start: 10-12-2022 Patient discharge [facility] Patient referral [facility] Work Phone: Payers Date Payer Category Payer Self-pay [id number] 2023 Medicare [id number] 2023 Unknown [id number] Unknown [id number] 2.16.8 [id number] Unknown [id number] 2.16.8 [id number] Unknown [id number] 2.16.8 [id number] Unknown [id number] 2.16.8 [id number] Unknown [id number] 2.16.8 [id number] Unknown [id number] 2.16.8 [id number] Social History Date Type Detail Facility Start: 03-29-2022 End: 10-07-2022 Tobacco smoking status NHIS Unknown if ever smoked [facility] Start: 1950 Sex Assigned At Male W [facility] Goals Date Patient Goal Desired Activity /State Mental Status Date Assessment Result Facility 10-12-2022 Cognitive function Voice/Name [facility] Work Phone: 10-12-2022 Cognitive function Patient Talia lopez Person;Place;Time [facility] Work Phone: History and physical note 10-12-2022 Note Date & Type Note Facility 10-12-2022 History and physical note Note Date/Time October 12, 2022 9:34am [facility] Medical Records Department [address] [place] [address] History & Physical Exam 10/12/22930 MR#: [id number] Acct: [id number] Name: JAYDEN MAJOR Rep #:[id number] : 1950 71 From: Joel Sher MD PCP: Dr. Guillermo Barry, DO Status:[facility] Location: [place] [address] HPI - General General Date of Service: 10/12/22 Chief Complaint: Screening for intestinal cancer HPI Narrative JAYDEN MAJOR, is a 71 M who presents for screening colonoscopy. Previous one wasover 10 years ago. He denies bright red blood per rectum or melena. He otherwise enjoys good health. [facility] Medical History (Updated 10/07/22 @ 15:50 by Radha López) Back pain Dementia Former smoker Heartburn History of ulceration Hx of skin cancer, basal cell Leg cramps Loss of hearing Skin cancer Home Medications ascorbic acid (vitamin C) 500 mg tablet 500 mg PO DAILY 06/26/20 [History Last Taken Unknown] cholecalciferol (vitamin D3) 125 mcg (5,000 unit) capsule 125 mcg PO DAILY 06/26/20 [History Last Taken Unknown] coenzyme Q10 100 mg capsule 100 mg PO DAILY 06/26/20 [History Last Taken Unknown] donepezil 10 mg tablet 10 mg PO QHS #30 tabs 08/10/22 [Rx Last Taken Unknown] aspirin 81 mg tablet,delayed release 81 mg PO DAILY 08/16/22 [History Last Taken 10/11/22] Allergy/AdvReac Type Severity Reaction Status Date / Time No Known Allergies Allergy Verified 10/12/22 09:17 Family History Father CVA (cerebral vascular accident) Cancer prostate Sister Breast cancer Diabetes Brother Diabetes Mother Diabetes Hypertension Surgical History (Updated 10/07/22 @ 15:50 by Radha López) H/O tooth extraction Hx of colonoscopy Hx of prostate biopsy Social History (Updated 08/16/22 @ 08:51 by Cristel Gomez) Smoking Status: Former smoker second hand exposure: No alcohol intake: current alcohol intake frequency: a few times a month Alcohol type: beer substance use type: does not use what type of physical activity do you participate in: walking frequency: daily bijan/yazidi: None seatbelt use: always ROS Constitutional Constitutional: Reports systems reviewed and no addt'l complaints, except as documented Cardiovascular Cardiovascular: Denies chest pain Respiratory/Chest Respiratory/Chest: Denies shortness of breath at rest Gastrointestinal Gastrointestinal: Denies abdominal pain, change in bowel habits, hematochezia ormelena Vital Signs Vital Signs Vital Signs: 10/12/22 09:07 10/12/22 09:07 Temperature 97.0 F L Temperature Source Temporal Pulse Rate 65 Respiratory Rate 16 Respiratory Pattern Normal Blood Pressure 144/76 H Blood Pressure Mean 98 Blood Pressure Source Monitor Blood Pressure Position Semi-Fowlers Blood Pressure Location Right Arm Pulse Ox 100 Oxygen Delivery Method Room Air Weight Weight: 169 lb 15.622 oz Body Mass Index (BMI) 24.3 Physical Exam Const alert, oriented x3 and no apparent distress General Appearance: cooperative and comfortable Eyes General Eye: normal appearance of both eyes Neck General: normal visual inspection Chest inspection of chest normal Resp Effort and Inspection: able to speak in complete sentences and symmetric chest movement Auscultation: clear to auscultation bilaterally Cardio regular rate and regular rhythm GI soft to palpation, non-tender and non-distended Extremity no calf tenderness Neuro oriented x3 Psych thought process normal Assessment & Plan Assessment/Plan (1) Encounter for screening for malignant neoplasm of colon: PLAN: The patient presents via open access today for screening colonoscopy with possible biopsy or polypectomy as indicated. He is aware of the technique, benefit, risk, alternatives. He has had an opportunity to ask and have questions answered. We will proceed as noted. Joel Sher M.D., F.A.C.S. 10/12/22 0955 <Electronically signed by Joel Sher MD> Cosigner Signature (if applicable): CC: Dr. Guillermo Barry, DO; Dr. Joel Sher MD~ Signed [facility] Work Phone: Procedure note 10-12-2022 Note Date & Type Note Facility 10-12-2022 Procedure note [facility] Procedure note 10-12-2022 Note Date & Type Note Facility 10-12-2022 Procedure note [facility] Evaluation note Note Date & Type Note Facility Evaluation note Diagnosis Onset Date Mild cognitive impairment ac salamatof [facility] Work Phone: Evaluation note Note Date & Type Note Facility Evaluation note No assessment information availa ble [facility] Work Phone: Evaluation note Note Date & Type Note Facility Evaluation note Diagnosis Onset Date Mild cognitive impairment ch ronic Mild dementia chronic Encounter for screening for malignant neoplasm of colon acute [facility] Work Phone: Chief Complaint and Reason for Visit Chief Complaint FOLLOW UP/SHORT TERM MEMORY LOSS EORDER MILD COGNITIVE IMPAIRMENT MILD COGNITIVE IMPAIRMENT Reason for Visit Mild cognitive impai rment Chief Complaint EORDER MILD COGNITIVE IMPAIRMENT MILD COGNITIVE IMPAIRMENT 2 DRS/ 2 ORDERS Chief Complaint 2 DRS/ 2 ORDERS 4 M FU PRIORITY Amb Documentation Reason for Visit Mild cognitive impai rment Mild dementia Encounter for screening for malignant neoplasm of colon Family History No Family History Records Found Relationship Condition Age at Onset Recorded Date/T mono father Cerebrovascular accident (CVA) Unknown Malignant neoplasm Unknown sister Malignant neoplasm of breast Unknown Diabetes mellitus Unknown brother Diabetes mellitus Unknown mother Diabetes mellitus Unknown Hypertension Unknown Advance Directives No Advanced Directives Records Found Advance Directive Response Recorded Date/ Time Living Will No June 14 10:11am Power of Gm Video No June 14, 2020 10:11am Advance Directive Response Recorded Date/ Time Living Will No June 14 9:11am Power of Gm Video No June 14, 2020 9:11am Advance Directive Response Recorded Date/ Time Name of Medical Power of Gm Video October 07, 2022 3:43pm Living Will Yes October 07 3:43pm Power of Gm Video Yes October 07, 2022 3:43pm Summary Purpose Additional Source Comments Goals (unrecognized section and content) Goals may be documented in a n alternate sectionGoals may be documented in an alternate section Care Teams (unrecognized sec tion and content) Team Status: Active Member Role Status Dates Dr. Edgard Avila MD Family Provider Active Dr. Guillermo Barry DO Primary Care Provider Active Team Status: Inactive Member Role Status Dates Dr. Edgard Avila MD Primary Care Provider, Referring Provider Active Dr. Jose Rueda MD Attending Provider Active Team Status: Active Member Role Status Dates Dr. Edgard Avila MD Primary Care Provider Active Cristel Gomez Attending Provider Active Team Status: Active Member Role Status Dates Dr. Joel Sher MD Attending Provider, Other Prov ider Active Dr. Guillermo Barry DO Primary Care Provider, Referrin g Provider Active Team Status: Inactive Member Role Status Dates Dr. Edgard Avila MD Primary Care Provi shar, Attending Provider, Referring Provider Active Dr. Tho Landaverde MD Other Provider Active Team Status: Inactive Member Role Status Dates Dr. Joel Sher MD Attending Provider Active Dr. Guillermo Barry , Primary Care Provider, Referrin g Provider Active (unrecognized sect ion and content) No Status Records Found INFORMATION SOURCE (unrecogn ized section and content) DATE CREATED AUTHOR 07/09/2025 [facility] FOR RECORDS PERTAINING TO PATIENTS WHO ARE OR HAVE BEEN ENROLLED IN A CHEMICAL DEPENDENCY/SUBSTANCEABUSE PROGRAM, SOME INFORMATION MAY BE OMITTED. This clinical summary was aggregated from multiple sources. Caution should be exercised in using it in the provision of clinical care. This summary normalizes information from multiple sources, and as a consequence, information in this document may materially change the coding, format and clinical context of patient data. In addition, data may be omitted in some cases. CLINICAL DECISIONS SHOULD BE BASED ON THE PRIMARY CLINICAL RECORDS. [facility]. provides no warranty or guarantee of the accuracy or completeness of information in this document.
[2025-07-23 10:11] LABS: Hematocrit 48.3 % (40-54); Hemoglobin 16.1 g/dL (13.0-16.5); Immature Granulocytes Count 0.020 X10^3/uL (0.0-0.0); Mean Corp Hgb Conc 33.3 g/dL (32-36); Mean Corpuscular Volume 94.9 fL (80-94); Mean Platelet Vol. 11.1 fl (6.2-12.0); NRBC Flagged by Analyzer 0 % (0-5); Platelet Count 171 K/mm3 (150-450); RBC Distribution Width CV 12.5 % (11.6-14.6); RBC Distribution Width SD 44.1 fl (35.1-43.9); Red Blood Count 5.09 M/mm3 (4.6-6.2); White Blood Count 5.4 K/mm3 (4.4-11.0)
[2025-07-23 10:47] LABS: AST(SGOT) 21 U/L (<=37); Alanine Aminotransfer ALT/SGPT 22 U/L (<=46); Albumin, Serum 4.0 g/dL (3.4-4.8); Alkaline Phosphatase 91 U/L (40-129); Anion Gap 8 (5-15); BUN 17 mg/dL (4-19); BUN/Creat Ratio 16.2 RATIO (10-20); Calcium,Total 9.1 mg/dL (7.6-11.0); Carbon Dioxide 26.7 mmol/L (21.0-32.0); Chloride 106 mmol/L (98-108); Cholesterol 152 mg/dL (<=200); Globulin 2.8 g/dL (2.2-4.2); Glucose 104 mg/dL (70-99); Low Density Lipoprotein Calc. 87 mg/dL; PSA,Total- Diagnostic 3.43 ng/mL (0.00-4.00); Potassium 4.7 mmol/L (3.3-5.1); Triglycerides 94 mg/dL; Very Low Density Lipoprotein 19 mg/dL (5-40); cholesterol:hdl ratio screen 3.17
== END | disposition home or self-care (01) ==
LOC: MTLAB 07:15
PROVIDERS: PCP Family Medicine; Referring Provider Family Medicine; Visit Provider Family Medicine
DX: Z00.00 Encounter for general adult medical examination without abnormal findings (principal); I10 Essential (primary) hypertension; R97.20 Elevated prostate specific antigen [PSA]; R73.01 Impaired fasting glucose
CPT/HCPCS: 36415; 80053; 80061; 83036; 84153; 85025